=== PATIENT | female | born 1980 | race Caucasian/White ===

== ENCOUNTER 2019-06-22 23:22 | Emergency (ER) | payer SELFPAY ==
[2019-06-22 23:33] VITALS: BP 146/87; PULSE 111; RESP 16; TEMP 37.1; O2SAT 96; BMI 32.4
--- NOTE | 2019-06-23 01:45 | W.ED.SKABFB ---
HPI - Skin/Abscess/Foreign Bdy General: Chief complaint: Skin/Abscess/Foreign Body Stated complaint: L ARMPIT PAIN Time Seen by Provider: 06/23/19 01:45 History of Present Illness: HPI narrative: Patient is a 39-year-old female who comes into the ED with an abscess under her left armpit. Patient states that it started a couple days ago and it just was a red mass on the surface of the skin with a sunshine. She then popped the white head and drained pus out of it. She says the bump was went flat and then about a day ago she started getting redness on the skin and tenderness in the left armpit. She could feel a mass under the left armpit. Associated symptoms: Reports chills and fever(s); Deny nausea or vomiting Review of Systems Const: Reports: fever and chills; Denies: fatigue Eyes: Denies: change in vision or eye discomfort ENMT: Denies: throat pain, painful swallowing, nasal discharge or nasal congestion Card: Denies: chest pain, palpitations, edema, swelling of feet/ankles, shortness of breath on exertion or shortness of breath when lying down Resp: Denies: shortness of breath, productive cough or non-productive cough GI: Denies: abdominal pain, nausea, vomiting, diarrhea, constipation or blood in stool : Denies: flank pain, painful urination or blood in urine Musc: Denies: neck pain, back pain or extremity swelling Skin/Breast: Reports: new lesion (abscess under left arm pit); Denies: rash Neuro: Denies: headache, numbness in extremities or weakness in extremities [facility] ED PFSH: Social History Smoking and tobacco status: current every day smoker Physical Exam Const: COMMON NORMALS: oriented x3 HENMT: COMMON NORMALS: normocephalic HEAD & SCALP: normocephalic MOUTH: oral and palatal mucosa normal THROAT: posterior oropharynx normal and uvula midline Neck/C-Spine: COMMON NORMALS: supple GENERAL: Yes normal visual inspection Resp: COMMON NORMALS: normal respiratory effort, no retractions, no use of accessory muscles and clear to auscultation bilaterally AUSCULTATION: clear to auscultation bilaterally Cardio: COMMON NORMALS: regular rate, regular rhythm, S1 normal heart sound, S2 normal heart sound, no gallops, no clicks, no murmurs and peripheral pulses 2+ throughout RATE: regular rate RHYTHM: regular rhythm HEART SOUNDS: S1 normal and S2 normal PERIPHERAL PULSES: pulses 2+ throughout GI: COMMON NORMALS: normal to inspection, nondistended, normoactive bowel sounds, soft to palpation, non-tender and no masses PALPATION: Yes soft : COMMON NORMALS: Yes no CVA tenderness BLADDER/KIDNEY EXAM: Yes no CVA tenderness Back/Pelvis: COMMON NORMALS: no CVA tenderness Extremity: COMMON NORMALS: normal to inspection Neuro: COMMON NORMALS: oriented x3 and moves all extremities Skin: NARRATIVE SKIN EXAM: Patient has a palpable tender mass under left armpit. The skin on the surface has erythema and warmth. The mass is fluctuant and indurated. mass is probably around 4 cm in diameter. Procedures Abscess I/D Site: upper extremity (axillary) Side (if applicable): left Local Anesthetic: lidocaine 2% Amount of anesthesia used (mL): 20 Technique: incised with #11 blade Amount of fluid expressed (mL): 5 Irrigation: No Packing used?: iodoform Laceration Laceration 1: Site: upper extremity (axillary- incision made for drainage and was then subsequently closed due to no drainage.) Side (If applicable): left Size (cm): 1.5 Description: linear Depth: simple, single layer Local Anesthetic: lidocaine 2% Amount of anesthesia used (mL): 10 Skin layer closed with: nylon Size (cm): 4-0 Number of sutures: 3 Technique: simple, interrupted (3 stitches placed to close up incision after I & D. ) Course ED course: An incision and drainage procedure was performed on patient's left axillary region. Abscess area was cleaned with iodine. 2% lidocaine was used as local anesthetic. First incision was about 1.5 cm and did not have any material to drain. It was then subsequently closed with 3 sutures. Another incision was made in the left axillary region and abscess was drained. Abscess drainage was cultured and lab is pending. I then placed some packing into abscess area. I told patient to return to the ED in 1 to 2 days to get packing removed And to get wound reevaluated. Patient was then put on a prescription for Bactrim and told to follow-up in 1 to 2 days. Patient agreed with understood plan. I also told patient she can get the sutures removed in 7 to 10 days either here or at the ED, urgent care or PCP. Vital Signs: Vital signs: Vital Signs Temperature 98.8 F 06/22/19 23:33 Pulse Rate 91 06/23/19 03:56 Respiratory Rate 16 06/23/19 03:56 Blood Pressure 146/87 06/22/19 23:33 Pulse Oximetry 95 06/23/19 03:56 Discharge Plan Discharge Patient Disposition: Home, Self-Care Clinical Impression: Abscess Condition: Stable Prescriptions: New Bactrim DS 800-160 mg tablet 1 tab PO BID 10 Days Qty: 20 RF: 0 No Action No Known Home Medications RF: 0 Discharge Orders: Discharge Order (Routine); Ordered 06/23/19 Ordered By: Heri Robledo Discharge Diet: Regular Discharge Activity: Resume usual activity Patient Instructions: Abscess Incision and Drainage (ED), Abscess (ED) Activity Restrictions/Additional Instructions: Follow-up here in the ED or urgent care in the next day to 2 days to get the packing removed. Take full course of antibiotics as prescribed. Drink plenty of fluids and stay hydrated. Take [id number] Tylenol or ibuprofen to help with pain. Discharge Date/Time: 06/23/19 03:57 Coding Level of Care Code ED Division Operations Specialist for Judith Red Exam Comprehensive
[2019-06-23] MEDS: HYDROcodone-acetaminophen 7.5-325 mg Tablet 1 TAB PO ×2 (02:19→03:15)
[2019-06-23] MEDS: sulfamethoxazole-trimeth DS 160-800 mg Tablet 1 TAB PO (03:16)
[2019-06-23 03:56] VITALS: PULSE 91; RESP 16; O2SAT 95
--- NOTE | 2019-06-25 14:48 | PC.NURSE ---
LAB CALLED WITH CULTURE RESULT PT ON APPROPRIATE ANTIBIOTIC FOR MRSA AND SENSATIVE TO IT
== END 2019-06-23 03:57 | disposition home or self-care (01) ==
PROVIDERS: Emergency Provider Physician Assistant
DX: L02.412 Cutaneous abscess of left axilla (principal); F17.200 Nicotine dependence, unspecified, uncomplicated
CPT/HCPCS: 10060; 10061; 12001; 12011; 12345; 87070; 87075; 87077; 87186; 87205; 99282; 99283

== ENCOUNTER 2019-06-25 13:56 | Emergency (ER) | payer SELFPAY ==
[2019-06-25 14:18] VITALS: BP 152/90; PULSE 96; RESP 16; TEMP 37; O2SAT 100; BMI 31.8
== END 2019-06-25 14:33 | disposition left against medical advice (07) ==
LOC: ER 14:49
PROVIDERS: Emergency Provider Emergency Medicine
DX: Z48.01 Encounter for change or removal of surgical wound dressing (principal); F17.200 Nicotine dependence, unspecified, uncomplicated; Z53.21 Procedure and treatment not carried out due to patient leaving prior to being seen by health care provider
CPT/HCPCS: 99281

== ENCOUNTER 2019-11-22 18:33 | Emergency (ER) | payer SELFPAY ==
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
[2019-11-22 18:44] VITALS: BP 121/76; PULSE 86; RESP 18; TEMP 36.9; O2SAT 98; BMI 31.5
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
[2019-11-22 19:12] VITALS: RESP 22
[2019-11-22] MEDS: HYDROmorphone 1 mg/mL INJ 1 mL IVP (19:12)
[2019-11-22 19:16] VITALS: BP 122/69; PULSE 79; RESP 22; O2SAT 98
[2019-11-22] MEDS: LORazepam 2 mg/mL INJ 1 mL 1 MG IVP (19:31)
[2019-11-22 19:43] VITALS: BP 122/89; PULSE 78; RESP 18; O2SAT 94
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
[2019-11-22 20:23] VITALS: BP 122/87; PULSE 78; RESP 14; O2SAT 97
[2019-11-22 20:54] VITALS: BP 121/87; PULSE 89; RESP 14; O2SAT 98
== END 2019-11-22 20:56 | disposition home or self-care (01) ==
PROVIDERS: Emergency Provider Emergency Medicine
DX: S70.01XA Contusion of right hip, initial encounter (principal); S90.02XA Contusion of left ankle, initial encounter; F17.210 Nicotine dependence, cigarettes, uncomplicated; V03.90XA Pedestrian on foot injured in collision with car, pick-up truck or van, unspecified whether traffic or nontraffic accident, initial encounter
CPT/HCPCS: 12345; 72192; 73080; 73502; 73562; 73610; 73630; 96374; 96375; 99283; J1170; J2060

== ENCOUNTER 2020-06-17 17:53 | Inpatient (IN) | payer MEDICAID, SELFPAY ==
[2020-06-17] VITALS (10 sets, daily range): BP systolic 90–112; BP diastolic 48–75; PULSE 73–105; RESP 16–18; TEMP 37.1; O2SAT 91–100; BMI 28.3
--- NOTE | 2020-06-17 18:04 | CTR_ITS ---
PROCEDURE INFORMATION: Exam: CT Abdomen And Pelvis With Contrast Exam date and time: 06/17/2020 6:07 PM Age: 40 years old Clinical indication: Abdominal pain; Additional info: Diffuse abd pain TECHNIQUE: Imaging protocol: Computed tomography of the abdomen and pelvis with contrast. Total images: 241 Radiation optimization: All CT scans at this facility use at least one of these dose optimization techniques: automated exposure control; mA and/or kV adjustment per patient size (includes targeted exams where dose is matched to clinical indication); or iterative reconstruction. Contrast material: OMNI 300; Contrast volume: 95 ml; Contrast route: INTRAVENOUS (IV); COMPARISON: CT pelvis wo con [id number] 11/22/2019 7:50 PM RADIATION DOSE METRICS: Total DLP (mGy-cm): 1501.83 FINDINGS: Lungs: Limited assessment of the lung bases fails to reveal evidence for active cardiopulmonary process. Liver: No visible hepatic mass or cystic structure. Hepatomegaly. Moderate periportal edema. Gallbladder and bile ducts: Examination reveals a sick appearing gallbladder. Large amount of pericholecystic fluid. Diffuse increased enhancement of the gallbladder wall but without significant gallbladder wall thickening. No visible formed cholelithiasis. No visible associated intra or extrahepatic biliary ectasia. Findings would be consistent with acute acalculous cholecystitis. Pancreas: Pancreas unremarkable. No visible pancreatic ductal ectasia. Spleen: Splenomegaly. Adrenal glands: Adrenal glands unremarkable. Kidneys and ureters: Kidneys unremarkable. No hydronephrosis or perinephric fluid. No visible nephrolithiasis. Stomach and bowel: Assessment of the hollow viscus fails to reveal evidence of active or acute pathology. Nonobstructed bowel pattern. No visible acute diverticulitis. No visible adynamic or reactive ileus. No evidence for gallstone ileus. Appendix: No evidence of appendicitis. Intraperitoneal space: Moderate amount of free fluid in the pouch of [place]. No visible pneumoperitoneum. Vasculature: Portal vein patent. The abdominal aorta is nonaneurysmal. Mild arterial sclerotic disease. Lymph nodes: Few marginally prominent retroperitoneal pericaval/periaortic lymph nodes. Clinical significance indeterminate. No visible generalized lymphadenopathy within the abdomen or pelvis. Urinary bladder: Urinary bladder unremarkable. Reproductive: Small involuting corpus luteal cyst right ovary. No follow-up recommended. Bones/joints: No visible active or acute osseous pathology. Previous fusion L3, L4, and L5. Intervertebral disc prostheses L3/4 and L4/L5. Mild facet arthrosis L5/S1. Soft tissues: Unremarkable. CT/CT abdomen pelvis w con* [id number] IMPRESSION: 1. Findings raising concern for acute acalculous cholecystitis. 2. Moderate amount of free fluid in the pouch of [place]. 3. Hepatomegaly with moderate periportal edema. 4. Splenomegaly. 5. Few marginally prominent retroperitoneal pericaval/periaortic lymph nodes. Clinical significance indeterminate. Radiation Dose CTDIVOL = (mGy): DLP = 1501.83 (mGy-cm)
--- NOTE | 2020-06-17 18:05 | ECG_ITS ---
[facility] Test Date: 2020-06-17 Pat Name: Theodora Irene Department: Room: Gender: Female Videogame Tester: : 1980 Requested By: Hamlet Lopez Order Number: [id number] John MD: Fernando Ramos M.D. Measurements Intervals [place] Rate: 97 P: 62 [place]: 118 QRS: 61 QRSD: 89 T: 66 QT: 334 QTc: 425 Interpretive Statements SINUS RHYTHM WITH SHORT [place] INTERVAL Compared to ECG 09/20/2017 00:47:24 Sinus tachycardia no longer present Electronically Signed On 06-17-2020 18:22:02 SUPERVISOR TRAVEL TRAILER by Fernando Ramos M.D. [id number]
--- NOTE | 2020-06-17 18:11 | ED_ITS ---
Documented by User: MARIK Pitt 06/17/20 21:16 HPI - Abdominal Pain General: Chief Complaint: Abdominal Pain Stated Complaint: N/V, SIDE PAIN Time Seen by Provider: 06/17/20 18:03 Source: patient Mode of arrival: ambulatory Limitations: no limitations History of Present Illness: HPI narrative: 40-year-old female comes in today with complaints of abdominal pain. Patient reports nausea vomiting and epigastric discomfort for last 2 days. Patient reports that it goes from the midline to the right side of her upper abdomen. Patient reports last bowel movement 2 to 3 days ago. Patient reports difficulty holding down liquids. Patient reports poor dentition, with frequent dental abscess. Patient denies any other medical problems or concerns. Patient has had a tubal ligation for control. MD elicited complaint: abdominal pain Onset (ago): day(s) Location: RUQ Severity: severe Quality: cramping Exacerbating factors: nothing Relieving factors: nothing Associated Symptoms: Reports change in bowel habits, heartburn, nausea and vomiting Related Data: Date of Last Menstrual Period: 11/21/19 Review of Systems General: Reports: 10 or more systems reviewed and unremarkable except in HPI and below GI: Reports: nausea, vomiting, heartburn and change in bowel habits PFSH ED PFSH: Medical History (Updated 06/17/20 @ 22:27 by Kannan Patterson MD) Bipolar disorder Surgical History (Updated 06/17/20 @ 22:14 by Kannan Patterson MD) H/O tubal ligation Family History (Updated 06/17/20 @ 22:14 by Kannan Patterson MD) Father Cancer Testicular cancer Social History (Updated 06/17/20 @ 22:15 by Kannan Patterson MD) Smoking and tobacco status: current every day smoker Alcohol intake: never Female Reproductive History: Date of last menstrual period: 11/21/19 Physical Exam Const: COMMON NORMALS: no acute distress and patient oriented x3 GENERAL APPEARANCE: cooperative HENMT: COMMON NORMALS: normocephalic and Normal external nose present HEAD & SCALP: normal to inspection and normocephalic NOSE: Normal external nose present MOUTH: Normal oral and palatal mucosa present and other (Poor dentition, superficial abscess noted to the right upper premolar) THROAT: posterior oropharynx normal Eye: GENERAL EYE: appearance normal, both eyes and all related structures Neck/C-Spine: COMMON NORMALS: full ROM Lymph: LYMPHATIC: no lymphadenopathy noted Chest: COMMONS NORMALS: normal inspection of the chest Resp: COMMON NORMALS: normal respiratory effort EFFORT & INSPECTION: Yes able to speak in complete sentences Cardio: COMMON NORMALS: regular rate and regular rhythm RATE: regular rate RHYTHM: regular rhythm GI: COMMON NORMALS: Soft to palpation INSPECTION: Yes normal to inspection AUSCULTATION: Yes normoactive bowel sounds PALPATION: Yes Soft to palpation and Yes Tenderness to palpation present (GI) Details: RUQ RECTAL EXAM: deferred : BLADDER/KIDNEY EXAM: Yes CVA tenderness bilateral Back/Pelvis: COMMON NORMALS: thoracic and lumbar spine normal to inspection GENERAL BACK: Yes CVA tenderness Extremity: COMMON NORMALS: normal to inspection Neuro: COMMON NORMALS: patient oriented x3 and moves all extremities Psych: COMMON NORMALS: mental status grossly normal and cooperative Skin: COMMON NORMALS: no rashes or lesions noted GENERAL SKIN EXAM: no rashes or lesions noted Course ED course: 1919, patient is resting well with good relief of pain. Awaiting lab and imaging. wjw. 1955, etiology contact me regarding patient's significant gallbladder wall inflammation suggesting a calculus cholecystitis. I discussed this with Dr. Fernandez with plan to order gallbladder ultrasound and start patient on Zosyn. He agreed with plan. wjw 2114, Dr. Fernandez assumed care of patient to talk with Dr. Frey and to admit patient to hospital. wjw Vital Signs: Vital signs: Vital Signs Temperature 98.7 F 06/17/20 17:56 Pulse Rate 77 06/17/20 23:30 Respiratory Rate 16 06/17/20 21:37 Blood Pressure 101/51 06/17/20 23:30 Pulse Oximetry 95 06/17/20 23:30 MDM - Abdominal Pain [facility] Narrative: Medical decision making narrative: Patient comes in today for complaints of right upper quadrant abdominal pain. On exam abdomen was soft with significant tenderness to the right upper quadrant. Vital signs were normal. Differential diagnosis includes gastritis, gastroenteritis, cholecystitis, pancreatitis, appendicitis. Laboratory values had a normal white blood cell count, significant elevation in liver enzymes with some elevated bilirubin. Urinalysis was a dirty catch. CT scan was performed noticing significant gallbladder wall inflammation without any signs of gallstone suggesting a have calculus cholecystitis. Ultrasound was then performed and noted normal bile duct size and gallbladder wall inflammation. Dr. Fernandez was consulted who agreed that we need to consult with surgeon Dr. Frey, he assumed care of patient for admission. Lab Data: Labs: Lab Results 06/17/20 06/17/20 06/17/20 Range/Units 18:30 18:40 19:00 WBC 4.5 (4.0-10.0) 10^3/ uL RBC 5.08 (4.1-5.3) 10^6/u L Hgb 14.1 (11.5-15.3) g/dL Hct 43.1 (37.0-47.0) % MCV 84.8 (81-99) fL MCH 27.8 L (28.0-34.0) pg MCHC 32.7 (30.0-36.0) g/dL RDW 14.7 (12.1-15.1) % Plt Count 226 (130-400) 10^3/c mm MPV 12.0 H (7.4-10.4) fL Neut % (Auto) 63.4 % Lymph % (Auto) 25.1 % Walsh % (Auto) 8.6 % Eos % (Auto) 1.3 % Baso % (Auto) 0.9 % Neut # (Auto) 2.86 (1.8-7.7) 10^3/u L Lymph # (Auto) 1.1 (0.8-4.8) 10^3/u L Walsh # (Auto) 0.4 (0.2-0.9) 10^3/u L Eos # (Auto) 0.1 (0.0-0.8) 10^3/u L Baso # (Auto) 0.0 (0.0-0.1) 10^3/u L Nucleated RBC % (a uto) 0 % Nucleated RBCs # 0.0 /100WBC PT (12.1-14.9) SECO NDS INR (0.8-1.2) APTT (23.9-36.7) SECO NDS Sodium 133 L (136-145) mmol/L Potassium 3.7 (3.5-5.1) mmol/L Chloride 99 (98-107) mmol/L Carbon Dioxide 28 (22-29) mmol/L Anion Gap 9.7 (5-19) BUN 8 (6-20) mg/dL Creatinine 0.5 (0.5-0.9) mg/dL GFR Calculation 136.6 H (90-130) mL/min Glucose 117 H (65-115) mg/dL Calculated Osmolal ity 275 L (285-295) mOsm/k g Lactate (0.5-2.2) mmol/L Calcium 7.8 L (8.5-10.5) mg/dL Total Bilirubin 3.5 H (0.15-1.2) mg/dL AST 2186 H (0-32) U/L ALT 1979 H (0-33) U/L Alkaline Phosphata se 474 H (35-105) IU/L Total Protein 6.8 (6.6-8.7) g/dL Albumin 2.6 L (3.5-5.2) g/dL Globulin 4.2 (1.3-4.6) g/dL Lipase 23 (13-60) U/L HCG, Qual (Negative) Urine Color Francheska (Yellow) Urine Appearance Clear (CLEAR) Urine pH 6.5 (5-7) Ur Specific Gravit y 1.020 (1.005-1.030) Urine Protein 1+ H (Negative) Urine Glucose (UA) Norm (Normal) Urine Ketones 1+ H (Negative) Urine Blood Neg (Negative) Urine Nitrate Negative (Negative) Urine Bilirubin 3+ H (Negative) Urine Urobilinogen 4+ H (Negative) mg/dL Ur Leukocyte Denisse ase Trace H (Negative) Urine RBC 0-4 H (0-2) /hpf Urine WBC 0-4 H (0-5) /hpf Ur Squamous Epith Cells 15-25 H (0-5) /hpf Calcium Oxalate Cr ystal 10-15 H /hpf Amorphous Sediment Not Reportable Urine Bacteria Trace (NONE) /hpf Hepatitis A IgM Ab (Nonreactive) Hep Bs Antigen (Nonreactive) Hep B Core IgM Ab (Nonreactive) Hepatitis C Antibo dy (Nonreactive) 06/17/20 06/17/20 06/17/20 Range/Units 19:00 19:00 19:00 WBC (4.0-10.0) 10^3/ uL RBC (4.1-5.3) 10^6/u L Hgb (11.5-15.3) g/dL Hct (37.0-47.0) % MCV (81-99) fL MCH (28.0-34.0) pg MCHC (30.0-36.0) g/dL RDW (12.1-15.1) % Plt Count (130-400) 10^3/c mm MPV (7.4-10.4) fL Neut % (Auto) % Lymph % (Auto) % Walsh % (Auto) % Eos % (Auto) % Baso % (Auto) % Neut # (Auto) (1.8-7.7) 10^3/u L Lymph # (Auto) (0.8-4.8) 10^3/u L Walsh # (Auto) (0.2-0.9) 10^3/u L Eos # (Auto) (0.0-0.8) 10^3/u L Baso # (Auto) (0.0-0.1) 10^3/u L Nucleated RBC % (a uto) % Nucleated RBCs # /100WBC PT (12.1-14.9) SECO NDS INR (0.8-1.2) APTT (23.9-36.7) SECO NDS Sodium (136-145) mmol/L Potassium (3.5-5.1) mmol/L Chloride (98-107) mmol/L Carbon Dioxide (22-29) mmol/L Anion Gap (5-19) BUN (6-20) mg/dL Creatinine (0.5-0.9) mg/dL GFR Calculation (90-130) mL/min Glucose (65-115) mg/dL Calculated Osmolal ity (285-295) mOsm/k g Lactate 1.4 (0.5-2.2) mmol/L Calcium (8.5-10.5) mg/dL Total Bilirubin (0.15-1.2) mg/dL AST (0-32) U/L ALT (0-33) U/L Alkaline Phosphata se (35-105) IU/L Total Protein (6.6-8.7) g/dL Albumin (3.5-5.2) g/dL Globulin (1.3-4.6) g/dL Lipase (13-60) U/L HCG, Qual Negative (Negative) Urine Color (Yellow) Urine Appearance (CLEAR) Urine pH (5-7) Ur Specific Gravit y (1.005-1.030) Urine Protein (Negative) Urine Glucose (UA) (Normal) Urine Ketones (Negative) Urine Blood (Negative) Urine Nitrate (Negative) Urine Bilirubin (Negative) Urine Urobilinogen (Negative) mg/dL Ur Leukocyte Denisse ase (Negative) Urine RBC (0-2) /hpf Urine WBC (0-5) /hpf Ur Squamous Epith Cells (0-5) /hpf Calcium Oxalate Cr ystal /hpf Amorphous Sediment Urine Bacteria (NONE) /hpf Hepatitis A IgM Ab Reactive H (Nonreactive) Hep Bs Antigen Non-reactive (Nonreactive) Hep B Core IgM Ab Non-reactive (Nonreactive) Hepatitis C Antibo dy Reactive H (Nonreactive) 06/17/20 Range/Units 21:24 WBC (4.0-10.0) 10^3/ uL RBC (4.1-5.3) 10^6/u L Hgb (11.5-15.3) g/dL Hct (37.0-47.0) % MCV (81-99) fL MCH (28.0-34.0) pg MCHC (30.0-36.0) g/dL RDW (12.1-15.1) % Plt Count (130-400) 10^3/c mm MPV (7.4-10.4) fL Neut % (Auto) % Lymph % (Auto) % Walsh % (Auto) % Eos % (Auto) % Baso % (Auto) % Neut # (Auto) (1.8-7.7) 10^3/u L Lymph # (Auto) (0.8-4.8) 10^3/u L Walsh # (Auto) (0.2-0.9) 10^3/u L Eos # (Auto) (0.0-0.8) 10^3/u L Baso # (Auto) (0.0-0.1) 10^3/u L Nucleated RBC % (a uto) % Nucleated RBCs # /100WBC PT 15.60 H (12.1-14.9) SECO NDS INR 1.20 (0.8-1.2) APTT 37.5 H (23.9-36.7) SECO NDS Sodium (136-145) mmol/L Potassium (3.5-5.1) mmol/L Chloride (98-107) mmol/L Carbon Dioxide (22-29) mmol/L Anion Gap (5-19) BUN (6-20) mg/dL Creatinine (0.5-0.9) mg/dL GFR Calculation (90-130) mL/min Glucose (65-115) mg/dL Calculated Osmolal ity (285-295) mOsm/k g Lactate (0.5-2.2) mmol/L Calcium (8.5-10.5) mg/dL Total Bilirubin (0.15-1.2) mg/dL AST (0-32) U/L ALT (0-33) U/L Alkaline Phosphata se (35-105) IU/L Total Protein (6.6-8.7) g/dL Albumin (3.5-5.2) g/dL Globulin (1.3-4.6) g/dL Lipase (13-60) U/L HCG, Qual (Negative) Urine Color (Yellow) Urine Appearance (CLEAR) Urine pH (5-7) Ur Specific Gravit y (1.005-1.030) Urine Protein (Negative) Urine Glucose (UA) (Normal) Urine Ketones (Negative) Urine Blood (Negative) Urine Nitrate (Negative) Urine Bilirubin (Negative) Urine Urobilinogen (Negative) mg/dL Ur Leukocyte Denisse ase (Negative) Urine RBC (0-2) /hpf Urine WBC (0-5) /hpf Ur Squamous Epith Cells (0-5) /hpf Calcium Oxalate Cr ystal /hpf Amorphous Sediment Urine Bacteria (NONE) /hpf Hepatitis A IgM Ab (Nonreactive) Hep Bs Antigen (Nonreactive) Hep B Core IgM Ab (Nonreactive) Hepatitis C Antibo dy (Nonreactive) EKG Data ^: EKG 1: Attestation: I personally reviewed and interpreted this EKG as follows: (1814, EKG shows a sinus rhythm with a regular rate at 97 bpm, no ST elevation, no ectopy. No prior exam available for comparison.) Discharge Plan Discharge Patient Disposition: Admitted As Inpatient Admit Provider: Kannan Patterson Clinical Impression: Acute acalculous cholecystitis Condition: Stable Coding Level of Care Code ED Field Support Technician for Chg Fwd Exam Comprehensive Documented by User: Kirby Heri DO Jim 06/17/20 23:55 HPI - Abdominal Pain General: Chief Complaint: Abdominal Pain Stated Complaint: N/V, SIDE PAIN Time Seen by Provider: 06/17/20 18:03 PFSH ED PFSH: Medical History (Updated 06/17/20 @ 22:27 by Kannan Pattreson MD) Bipolar disorder Surgical History (Updated 06/17/20 @ 22:14 by Kannan Patterson MD) H/O tubal ligation Family History (Updated 06/17/20 @ 22:14 by Kannan Patterson MD) Father Cancer Testicular cancer Social History (Updated 06/17/20 @ 22:15 by Kannan Patterson MD) Smoking and tobacco status: current every day smoker Alcohol intake: never Course Vital Signs: Vital signs: Vital Signs Temperature 98.7 F 06/17/20 17:56 Pulse Rate 77 06/17/20 23:30 Respiratory Rate 16 06/17/20 21:37 Blood Pressure 101/51 06/17/20 23:30 Pulse Oximetry 95 06/17/20 23:30 MDM - Abdominal Pain MDM Narrative: Medical decision making narrative: 40-year-old female o riginally seen by AMRIK Espinosa. I agree with his history, evaluation, work- up, and treatment. This is a 40-year-old female with epigastric and right upper quadrant pain. Her white blood cell count is 4.5. Her electrolytes are benign she has significantly elevated liver enzymes. She is positive for hepatitis A and hepatitis C on acute hepatitis panel. She has gallbladder wall thickening w ith pericholecystic fluid and normal bile ducts by CT and ultrasound. A calculus cholecystitis findings are likely a result of the acute hepatitis. Dr. Frey was called from surgery, and he agrees with this. The patient's INR is 1. She will come into the hospital for supportive treatment of hepatitis A, and coverage for a calculus cholecystitis Lab Data: Labs: Lab Results 06/17/20 06/17/20 06/17/20 Range/Units 18:30 18:40 19:00 WBC 4.5 (4.0-10.0) 10^3/ uL RBC 5.08 (4.1-5.3) 10^6/u L Hgb 14.1 (11.5-15.3) g/dL Hct 43.1 (37.0-47.0) % MCV 84.8 (81-99) fL MCH 27.8 L (28.0-34.0) pg MCHC 32.7 (30.0-36.0) g/dL RDW 14.7 (12.1-15.1) % Plt Count 226 (130-400) 10^3/c mm MPV 12.0 H (7.4-10.4) fL Neut % (Auto) 63.4 % Lymph % (Auto) 25.1 % Walsh % (Auto) 8.6 % Eos % (Auto) 1.3 % Baso % (Auto) 0.9 % Neut # (Auto) 2.86 (1.8-7.7) 10^3/u L Lymph # (Auto) 1.1 (0.8-4.8) 10^3/u L Walsh # (Auto) 0.4 (0.2-0.9) 10^3/u L Eos # (Auto) 0.1 (0.0-0.8) 10^3/u L Baso # (Auto) 0.0 (0.0-0.1) 10^3/u L Nucleated RBC % (a uto) 0 % Nucleated RBCs # 0.0 /100WBC PT (12.1-14.9) SECO NDS INR (0.8-1.2) APTT (23.9-36.7) SECO NDS Sodium 133 L (136-145) mmol/L Potassium 3.7 (3.5-5.1) mmol/L Chloride 99 (98-107) mmol/L Carbon Dioxide 28 (22-29) mmol/L Anion Gap 9.7 (5-19) BUN 8 (6-20) mg/dL Creatinine 0.5 (0.5-0.9) mg/dL GFR Calculation 136.6 H (90-130) mL/min Glucose 117 H (65-115) mg/dL Calculated Osmolal ity 275 L (285-295) mOsm/k g Lactate (0.5-2.2) mmol/L Calcium 7.8 L (8.5-10.5) mg/dL Total Bilirubin 3.5 H (0.15-1.2) mg/dL AST 2186 H (0-32) U/L ALT 1979 H (0-33) U/L Alkaline Phosphata se 474 H (35-105) IU/L Total Protein 6.8 (6.6-8.7) g/dL Albumin 2.6 L (3.5-5.2) g/dL Globulin 4.2 (1.3-4.6) g/dL Lipase 23 (13-60) U/L HCG, Qual (Negative) Urine Color Francheska (Yellow) Urine Appearance Clear (CLEAR) Urine pH 6.5 (5-7) Ur Specific Gravit y 1.020 (1.005-1.030) Urine Protein 1+ H (Negative) Urine Glucose (UA) Norm (Normal) Urine Ketones 1+ H (Negative) Urine Blood Neg (Negative) Urine Nitrate Negative (Negative) Urine Bilirubin 3+ H (Negative) Urine Urobilinogen 4+ H (Negative) mg/dL Ur Leukocyte Denisse ase Trace H (Negative) Urine RBC 0-4 H (0-2) /hpf Urine WBC 0-4 H (0-5) /hpf Ur Squamous Epith Cells 15-25 H (0-5) /hpf Calcium Oxalate Cr ystal 10-15 H /hpf Amorphous Sediment Not Reportable Urine Bacteria Trace (NONE) /hpf Hepatitis A IgM Ab (Nonreactive) Hep Bs Antigen (Nonreactive) Hep B Core IgM Ab (Nonreactive) Hepatitis C Antibo dy (Nonreactive) 06/17/20 06/17/20 06/17/20 Range/Units 19:00 19:00 19:00 WBC (4.0-10.0) 10^3/ uL RBC (4.1-5.3) 10^6/u L Hgb (11.5-15.3) g/dL Hct (37.0-47.0) % MCV (81-99) fL MCH (28.0-34.0) pg MCHC (30.0-36.0) g/dL RDW (12.1-15.1) % Plt Count (130-400) 10^3/c mm MPV (7.4-10.4) fL Neut % (Auto) % Lymph % (Auto) % Walsh % (Auto) % Eos % (Auto) % Baso % (Auto) % Neut # (Auto) (1.8-7.7) 10^3/u L Lymph # (Auto) (0.8-4.8) 10^3/u L Walsh # (Auto) (0.2-0.9) 10^3/u L Eos # (Auto) (0.0-0.8) 10^3/u L Baso # (Auto) (0.0-0.1) 10^3/u L Nucleated RBC % (a uto) % Nucleated RBCs # /100WBC PT (12.1-14.9) SECO NDS INR (0.8-1.2) APTT (23.9-36.7) SECO NDS Sodium (136-145) mmol/L Potassium (3.5-5.1) mmol/L Chloride (98-107) mmol/L Carbon Dioxide (22-29) mmol/L Anion Gap (5-19) BUN (6-20) mg/dL Creatinine (0.5-0.9) mg/dL GFR Calculation (90-130) mL/min Glucose (65-115) mg/dL Calculated Osmolal ity (285-295) mOsm/k g Lactate 1.4 (0.5-2.2) mmol/L Calcium (8.5-10.5) mg/dL Total Bilirubin (0.15-1.2) mg/dL AST (0-32) U/L ALT (0-33) U/L Alkaline Phosphata se (35-105) IU/L Total Protein (6.6-8.7) g/dL Albumin (3.5-5.2) g/dL Globulin (1.3-4.6) g/dL Lipase (13-60) U/L HCG, Qual Negative (Negative) Urine Color (Yellow) Urine Appearance (CLEAR) Urine pH (5-7) Ur Specific Gravit y (1.005-1.030) Urine Protein (Negative) Urine Glucose (UA) (Normal) Urine Ketones (Negative) Urine Blood (Negative) Urine Nitrate (Negative) Urine Bilirubin (Negative) Urine Urobilinogen (Negative) mg/dL Ur Leukocyte Denisse ase (Negative) Urine RBC (0-2) /hpf Urine WBC (0-5) /hpf Ur Squamous Epith Cells (0-5) /hpf Calcium Oxalate Cr ystal /hpf Amorphous Sediment Urine Bacteria (NONE) /hpf Hepatitis A IgM Ab Reactive H (Nonreactive) Hep Bs Antigen Non-reactive (Nonreactive) Hep B Core IgM Ab Non-reactive (Nonreactive) Hepatitis C Antibo dy Reactive H (Nonreactive) 06/17/20 Range/Units 21:24 WBC (4.0-10.0) 10^3/ uL RBC (4.1-5.3) 10^6/u L Hgb (11.5-15.3) g/dL Hct (37.0-47.0) % MCV (81-99) fL MCH (28.0-34.0) pg MCHC (30.0-36.0) g/dL RDW (12.1-15.1) % Plt Count (130-400) 10^3/c mm MPV (7.4-10.4) fL Neut % (Auto) % Lymph % (Auto) % Walsh % (Auto) % Eos % (Auto) % Baso % (Auto) % Neut # (Auto) (1.8-7.7) 10^3/u L Lymph # (Auto) (0.8-4.8) 10^3/u L Walsh # (Auto) (0.2-0.9) 10^3/u L Eos # (Auto) (0.0-0.8) 10^3/u L Baso # (Auto) (0.0-0.1) 10^3/u L Nucleated RBC % (a uto) % Nucleated RBCs # /100WBC PT 15.60 H (12.1-14.9) SECO NDS INR 1.20 (0.8-1.2) APTT 37.5 H (23.9-36.7) SECO NDS Sodium (136-145) mmol/L Potassium (3.5-5.1) mmol/L Chloride (98-107) mmol/L Carbon Dioxide (22-29) mmol/L Anion Gap (5-19) BUN (6-20) mg/dL Creatinine (0.5-0.9) mg/dL GFR Calculation (90-130) mL/min Glucose (65-115) mg/dL Calculated Osmolal ity (285-295) mOsm/k g Lactate (0.5-2.2) mmol/L Calcium (8.5-10.5) mg/dL Total Bilirubin (0.15-1.2) mg/dL AST (0-32) U/L ALT (0-33) U/L Alkaline Phosphata se (35-105) IU/L Total Protein (6.6-8.7) g/dL Albumin (3.5-5.2) g/dL Globulin (1.3-4.6) g/dL Lipase (13-60) U/L HCG, Qual (Negative) Urine Color (Yellow) Urine Appearance (CLEAR) Urine pH (5-7) Ur Specific Gravit y (1.005-1.030) Urine Protein (Negative) Urine Glucose (UA) (Normal) Urine Ketones (Negative) Urine Blood (Negative) Urine Nitrate (Negative) Urine Bilirubin (Negative) Urine Urobilinogen (Negative) mg/dL Ur Leukocyte Denisse ase (Negative) Urine RBC (0-2) /hpf Urine WBC (0-5) /hpf Ur Squamous Epith Cells (0-5) /hpf Calcium Oxalate Cr ystal /hpf Amorphous Sediment Urine Bacteria (NONE) /hpf Hepatitis A IgM Ab (Nonreactive) Hep Bs Antigen (Nonreactive) Hep B Core IgM Ab (Nonreactive) Hepatitis C Antibo dy (Nonreactive) Discharge Plan Discharge Patient Disposition: Admitted As Inpatient Admit Provider: Kannan Patterson Clinical Impression: Acute acalculous cholecystitis Condition: Stable Coding Level of Care Code ED Field Support Technician for Chg Fwd Exam Comprehensive
[2020-06-17 18:41] LABS: Basophils % 0.9 %; Eosinophils # 0.1 10^3/uL (0.0-0.8); Eosinophils % 1.3 %; Hematocrit 43.1 % (37.0-47.0); Hemoglobin 14.1 g/dL (11.5-15.3); Lymphocytes # 1.1 10^3/uL (0.8-4.8); Lymphocytes % 25.1 %; Mean Corpuscular HGB Conc 32.7 g/dL (30.0-36.0); Mean Corpuscular Hemoglobin 27.8 pg (28.0-34.0); Mean Corpuscular Volume 84.8 fL (81-99); Monocytes # 0.4 10^3/uL (0.2-0.9); Monocytes % 8.6 %; Neutrophils # 2.86 10^3/uL (1.8-7.7); Neutrophils % 63.4 %; Nucleated Red Blood Cells % 0 %; Platelet Count 226 10^3/cmm (130-400); Red Blood Count 5.08 10^6/uL (4.1-5.3); Red Cell Distribution Width 14.7 % (12.1-15.1); White Blood Count 4.5 10^3/uL (4.0-10.0)
[2020-06-17] MEDS: sodium chloride 0.9% 1,000 ML 999 ML IV (18:48)
[2020-06-17] MEDS: morphine 4 mg/mL SDV 1 mL IM (18:49)
[2020-06-17] MEDS: ondansetron 2 mg/ML SDV 2 mL 4 MG IVP (18:49)
[2020-06-17 19:19] LABS: HCG, Serum Qual Negative (Negative)
[2020-06-17 19:22] LABS: Bilirubin Urine 3+ (Negative); Blood Urine Neg (Negative); Glucose Urine UA Norm (Normal); Ketones Urine 1+ (Negative); Nitrate Urine Negative (Negative); Protein Urine 1+ (Negative); Urine Appearance Clear (CLEAR); Urine Color Amber (Yellow); pH Urine 6.5 (5-7)
[2020-06-17 19:23] LABS: Add Urine Microscopic? YES; Leukocyte Esterase Urine Trace (Negative); Urobilinogen Urine 4+ mg/dL (Negative)
[2020-06-17 19:26] LABS: Add Urine Culture? No; Bacteria Urine TRACE /hpf; RBC Urine 0-4 /hpf (0-2); Squamous Epithelial Cell Urine 15-25 /hpf (0-5); WBC Urine 0-4 /hpf (0-5)
[2020-06-17 19:27] LABS: Albumin Level 2.6 g/dL (3.5-5.2); Alkaline Phosphatase 474 IU/L (35-105); Anion Gap 9.7 (5-19); Blood Urea Nitrogen 8 mg/dL (6-20); Calcium 7.8 mg/dL (8.5-10.5); Carbon Dioxide 28 mmol/L (22-29); Chloride 99 mmol/L (98-107); Globulin 4.2 g/dL (1.3-4.6); Glomerular Filtration Rate 136.6 mL/min (90-130); Glucose 117 mg/dL (65-115); Lipase 23 U/L (13-60); Osmolality Calculated 275 mOsm/kg (285-295); Potassium 3.7 mmol/L (3.5-5.1); Sodium 133 mmol/L (136-145); Total Bilirubin 3.5 mg/dL (0.15-1.2); Total Protein 6.8 g/dL (6.6-8.7)
[2020-06-17 19:28] LABS: Lactate (Lactic Acid level) 1.4 mmol/L (0.5-2.2)
[2020-06-17] MEDS: iohexol 300 mg/mL 100 mL Btl IV (19:37)
[2020-06-17 19:40] LABS: Alanine Aminotransferase 1979 U/L (0-33); Aspartate Amino Transferase 2186 U/L (0-32)
--- NOTE | 2020-06-17 19:53 | USR_ITS ---
PROCEDURE INFORMATION: Exam: US Abdomen, Limited; Right Upper Quadrant Exam date and time: 06/17/2020 8:31 PM Age: 40 years old Clinical indication: Abdominal pain; Additional info: Cholecystitis TECHNIQUE: Imaging protocol: US abdomen. Real time ultrasound with image documentation. Limited exam focused on the right upper quadrant. Total images: 90 COMPARISON: CT abdomen pelvis w con* [id number] 06/17/2020 7:48 PM FINDINGS: Liver: Normal. No masses. Gallbladder: Findings similar to the CT abdomen and pelvis examination of 06/17/2020 at 7:52 p.m. Findings again suggest acute acalculous cholecystitis. No visible formed cholelithiasis. Thickened gallbladder wall with edema. Pericholecystic fluid. Common bile duct: Normal. No stones. No dilation. Common bile duct measures 3 mm. Pancreas: Visualized pancreas is unremarkable. Right kidney: Normal. No mass. No hydronephrosis. Right kidney measures 11.4 cm x 4.5 cm x 4.7 cm. Aorta: The abdominal aorta, where visualized, is nonaneurysmal. Portal venous: Antegrade portal venous flow. Inferior vena cava: IVC patent. US/US gall bladder [id number] IMPRESSION: Acute acalculous cholecystitis.
[2020-06-17 20:16] LABS: Hepatitis B Core IgM Non-Reactive (Nonreactive); Hepatitis B Surface Antigen Non-Reactive (Nonreactive)
[2020-06-17] MEDS: piperacillin-tazobactam 3.375 GM in sodium chloride 0.9% (plus) 50 ML IV (21:03)
[2020-06-17 21:14] LABS: Hepatitis A Antibody IgM Reactive (Nonreactive); Hepatitis C Virus Antibody Reactive (Nonreactive)
[2020-06-17] MEDS: morphine 4 mg/mL SDV 1 mL 2 MG IVP (21:37)
[2020-06-17 21:56] LABS: Partial Thromboplastin Time 37.5 SECONDS (23.9-36.7)
--- NOTE | 2020-06-17 22:05 | PM.HP ---
Providers/Chief Complaint Chief Complaint: N/V, SIDE PAIN History of Present Illness Theodora Irene is a 40 year old female with a history of bipolar disorder presented to the emergency department with a complaint of abdominal pain onset 3 days ago. Symptoms associated with nausea and vomiting. Patient denied any diarrhea. Patient denied any fever. Work-up in the emergency department revealed elevated liver enzymes and bilirubin. CT abdomen and gallbladder ultrasound report gallbladder wall thickening with edema and pericholecystic fluid. No cholelithiasis. Serology is positive for hepatitis A IgM and hepatitis C antibody. Patient diagnosed with acute hepatitis and admitted for further management. Review of Systems Narrative: Except as documented, all other systems reviewed and negative. Medications/Allergies Home Medications Medication Instructions Recorded Confirmed Last Taken Type acetaminophen [Tylenol] 325 mg PO QID PRN 06/17/20 06/17/20 06/17/20 History lbhpwjk-iswsfxullawjg-wjgmbocs 1 tab PO Q6H PRN 06/17/20 06/17/20 Unknown History [Goody's Migraine Relief] Allergies Allergy/AdvReac Type Severity Reaction Status Date / Time lamotrigine [From Lamictal] Allergy ALGY-Rash Verified 06/25/19 16:33 tramadol Allergy ADR-Anxiety Verified 06/25/19 16:33 PFSH Acute PFSH: Medical History (Updated 06/17/20 @ 22:27 by Kannan Patterson MD) Bipolar disorder Surgical History (Updated 06/17/20 @ 22:14 by Kannan Patterson MD) H/O tubal ligation Family History (Updated 06/17/20 @ 22:14 by Kannan Patterson MD) Father Cancer Testicular cancer Social History (Updated 06/17/20 @ 22:15 by Kannan Patterson MD) Smoking and tobacco status: current every day smoker Alcohol intake: never Female Reproductive History: Date of last menstrual period: 11/21/19 Vitals/I&O/Wt Last Vital Signs Temp 98.7 F 06/17/20 17:56 Pulse 95 06/17/20 18:54 Resp 16 06/17/20 21:37 BP 112/55 06/17/20 18:54 Pulse Ox 100 06/17/20 21:37 Weight last 48 hrs Weight 72.575 kg Physical Exam Const: COMMON NORMALS: no acute distress, average body habitus, patient oriented x3 and well nourished HENMT: COMMON NORMALS: normocephalic, atraumatic, moist oral mucous membranes and oropharynx normal Eye: COMMON NORMALS: Equal, round and reactive pupils present, EOMs intact bilaterally and conjunctivae normal SCLERA: scleral abnormal (Mild icterus) Neck/C-Spine: COMMON NORMALS: full ROM, supple and Thyroid normal Lymph: LYMPHATIC: no lymphadenopathy noted Chest: COMMONS NORMALS: normal inspection of the chest CHEST: Yes Symmetrical chest wall rise Resp: COMMON NORMALS: normal respiratory effort, No retractions, No use of accessory muscles and clear to auscultation bilaterally Cardio: COMMON NORMALS: no JVD, regular rate, regular rhythm, S1 normal heart sound present and S2 normal heart sound present GI: COMMON NORMALS: Normal to inspection, nondistended, normoactive bowel sounds present, Soft to palpation and No hepatosplenomegaly present PALPATION: Yes Tenderness to palpation present (GI) Details: RUQ : BLADDER/KIDNEY EXAM: Yes no CVA tenderness Back/Pelvis: COMMON NORMALS: no CVA tenderness, no thoracic nor lumbar tenderness and thoraco-lumbar ROM normal Extremity: COMMON NORMALS: normal to inspection, full ROM, capillary refill normal, no clubbing, cyanosis or edema and no calf tenderness Neuro: COMMON NORMALS: patient oriented x3, CN's II-XII intact bilaterally and no focal motor deficits Psych: COMMON NORMALS: mental status grossly normal, Normal thought process present, cooperative and normal affect APPEARANCE: Yes grossly normal Skin: GENERAL SKIN EXAM: jaundice Data : 06/17/20 18:30 06/17/20 19:00 Micro: Microbiology 06/17/20 20:08 Blood Culture - Preliminary Blood SPECIMEN COLLECTED A&P Assessment and plan (1) Acute hepatitis A: Status: Acute (2) Hepatitis C infection: Status: Acute (3) Acute acalculous cholecystitis: Status: Acute Additional A&P Information Admit patient to the medical floor. We will treat possible infection empirically with IV Zosyn. Supportive measures for acute hepatitis-IV fluid, antiemetics as needed, pain management as needed. Monitor LFT for improvement. Check coagulation profile daily to monitor for fulminant hepatitis or hepatic failure. Attestations Medical Necessity Statement*: Patient presenting with nausea and vomiting secondary to acute hepatitis. She need to be hospitalized for supportive measures. She is expected to spend more than 2 midnights. 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
[2020-06-18] VITALS (9 sets, daily range): BP systolic 89–111; BP diastolic 58–71; PULSE 77–89; RESP 16–22; TEMP 36.8–37.1; O2SAT 97–98
[2020-06-18] MEDS: famotidine 20 mg/2 mL INJ IVP ×3 (00:39→23:34)
[2020-06-18] MEDS: sodium chloride 0.9% 1,000 ML 125 ML IV ×3 (00:40→15:50)
[2020-06-18] MEDS: morphine 4 mg/mL SDV 1 mL 2 MG IVP (05:48)
[2020-06-18 07:13] LABS: Basophils % 0.4 %; Eosinophils % 0.7 %; Hematocrit 41.1 % (37.0-47.0); Lymphocytes # 1.3 10^3/uL (0.8-4.8); Mean Corpuscular HGB Conc 31.6 g/dL (30.0-36.0); Mean Corpuscular Hemoglobin 27.7 pg (28.0-34.0); Mean Corpuscular Volume 87.4 fL (81-99); Mean Platelet Volume 11.9 fL (7.4-10.4); Monocytes # 0.5 10^3/uL (0.2-0.9); Monocytes % 11.2 %; Neutrophils # 2.56 10^3/uL (1.8-7.7); Neutrophils % 57.5 %; Nucleated Red Blood Cells % 0 %; Platelet Count 233 10^3/cmm (130-400); Red Cell Distribution Width 14.8 % (12.1-15.1); White Blood Count 4.5 10^3/uL (4.0-10.0)
[2020-06-18 07:24] LABS: INR 1.11 (0.8-1.2)
[2020-06-18 08:05] LABS: Slide Review Slide Review Perform
[2020-06-18 08:24] LABS: Partial Thromboplastin Time 37.4 SECONDS (23.9-36.7)
[2020-06-18] MEDS: nicotine 14 mg Patch 1 PATCH TRANSDERMA (08:26)
[2020-06-18 08:34] LABS: Albumin Level 2.5 g/dL (3.5-5.2); Alkaline Phosphatase 428 IU/L (35-105); Blood Urea Nitrogen 6 mg/dL (6-20); Carbon Dioxide 27 mmol/L (22-29); Chloride 99 mmol/L (98-107); Glomerular Filtration Rate 136.6 mL/min (90-130); Glucose 98 mg/dL (65-115); Magnesium 1.9 mg/dL (1.7-2.3); Osmolality Calculated 272 mOsm/kg (285-295); Phosphorus 3.3 mg/dL (2.5-4.5); Sodium 132 mmol/L (136-145); Total Bilirubin 3.9 mg/dL (0.15-1.2); Total Protein 6.5 g/dL (6.6-8.7)
[2020-06-18 08:45] LABS: Alanine Aminotransferase 2123 U/L (0-33)
[2020-06-18 09:09] LABS: Aspartate Amino Transferase 2273 U/L (0-32)
--- NOTE | 2020-06-18 09:27 | P.CONIM_ITS ---
Providers/Reason For Consult Consulting Physican/Specialty*: General Surgery Tripp Frey MD Reason for Consult*: Abnormal appearing gallbladder on imaging, right upper quadrant pain with hepatitis. Attending Physician: Robbi Hernandez History of Present Illness History of Present Illness Theodora Irene is a 40 year old female who says that she developed some diffuse abdominal pain about 3 days ago. She seems to indicate that most of it is in her upper abdomen but it moves around. She had multiple episodes of vomiting with some nausea, but denies hematemesis. She says she has not had a bowel movement in 3 days, which is not unusual for her. She continues to pass flatus. She came to the emergency room yesterday and imaging revealed a thickened gallbladder wall with some pericholecystic fluid and elevated liver function studies in the absence of any gallbladder sludge or cholelithiasis. She denies being around anyone with known hepatitis but says half this town has hepatitis. Her hepatitis A and hepatitis C tests were reactive and she was admitted for further management. The patient denies any food intolerances prior to the onset of this episode. She has been able to eat whatever she wants to. In short, she does not have what sounds to be an ongoing history of biliary colic. She has both acetaminophen and acetaminophen-containing medications on her home medication list, but says she does not take these very often. 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 She says she was accidentally stuck with a dirty needle while working at [employer] about a year ago. She was tested for HIV, hepatitis, etc. and says everything was negative at that time. Review of Systems Const: Reports: change in appetite; Denies: fever(s) GI: Reports: abdominal pain, nausea and vomiting; Denies: hematemesis, change in bowel habits, hematochezia or melena : Reports: flank pain and dysuria Musc: Reports: back pain Neuro: Reports: headache(s) (History of) Psych: Reports: anxiety and depression Meds/Allergies Home Medications and Allergies Home Medications Medication Instructions Recorded Confirmed Last Taken Type acetaminophen [Tylenol] 325 mg PO QID PRN 06/17/20 06/17/20 06/17/20 History [id number]-[id number]-tyvxifxr 1 tab PO Q6H PRN 06/17/20 06/17/20 Unknown History [Goody's Migraine Relief] Allergies Allergy/AdvReac Type Severity Reaction Status Date / Time lamotrigine [From Lamictal] Allergy ALGY-Rash Verified 06/25/19 16:33 tramadol Allergy ADR-Anxiety Verified 06/25/19 16:33 Current Medications Current Medications Generic Name Dose Route Start Last Admin Trade Name Freq PRN Reason Stop Dose Admin Famotidine 20 mg 06/18/20 00:21 06/18/20 00:39 Famotidine 20 Mg/2 Ml Inj IVP 20 mg Q12H MARIO Administration Sodium Chloride 1,000 mls @ 125 mls/hr 06/18/20 00:21 06/18/20 08:26 Sodium Chloride 0.9% IV 125 mls/hr .Q8H MARIO Administration Morphine Sulfate 2 mg 06/18/20 00:21 06/18/20 05:48 Morphine 4 Mg/Ml Sdv 1 Ml IVP 2 mg Q4H PRN Administration SEVERE PAIN Nicotine 1 patch 06/18/20 09:00 06/18/20 08:26 Nicotine 14 Mg Patch TRANSDERMA 1 patch DAILY MARIO Administration PFSH Acute PFSH: Medical History Bipolar disorder History of intravenous drug use in remission Surgical History H/O tubal ligation Family History Father Cancer Testicular cancer Social History (Updated 06/18/20 @ 09:44 by Tripp Frey MD) Smoking and tobacco status: current every day smoker cigarettes Packs smoked per day: 0.25 Years cigarettes smoked: 30 [ Other cigarette details: Smoking since age 11, used to smoke a little bit more ] Alcohol intake: never Substance/Drug Use: former 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, 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 Female Reproductive History: Date of last menstrual period: 11/21/19 Vitals/I&O/Wt Last Vital Signs Temp 98.4 F 06/18/20 08:00 Pulse 86 06/18/20 08:00 Resp 18 06/18/20 08:00 BP 99/61 06/18/20 08:00 Pulse Ox 98 06/18/20 00:06/17/20 06/18/20 06/18/20 22:59 06:59 14:59 Intake Total 1050 / 1050 970.833 / 970.833 Balance 1050 / 1050 970.833 / 970.833 Weight last 48 hrs Weight 160 lb Physical Exam Narrative: EXAM NARRATIVE: The patient was encountered in her hospital room. She does not appear to be in any distress. The pupils are equal. The dentition is poor. No carotid bruits are heard. The lungs are clear anteriorly. The heart is regular. The abdomen is mildly obese but is soft and has bowel sounds. She does seem to have tenderness, however, especially in the right upper quadrant but seems to have discomfort even in anticipation of me touching her abdomen; she will laugh and joke at the same time, however. The extremities reveal no edema. Neurologically she appears to be grossly intact. Data Labs: Other Labs: Laboratory Tests 06/18/20 06:46 Total Bilirubin 3.9 H AST 2273 H ALT 2123 H Alkaline Phosphata se 428 H Albumin 2.5 L Micro: Micro: Microbiology 06/17/20 21:02 Blood Culture - Pr eliminary Blood SPECIMEN COLLE KAUR 06/17/20 20:08 Blood Culture - Pr eliminary Blood SPECIMEN [facility] Imaging^: CT Abd/Pel: Radiologist's impression: CT abdomen/pelvis 06/17/2020 IMPRESSION: 1. Findings raising concern for acute acalculous cholecystitis. 2. Moderate amount of free fluid in the pouch of Blayne. 3. Hepatomegaly with moderate periportal edema. 4. Splenomegaly. 5. Few marginally prominent retroperitoneal pericaval/periaortic lymph nodes. Clinical significance indeterminate. US: Radiologist's impression: Gallbladder ultrasound 06/17/2020 IMPRESSION: Acute acalculous cholecystitis. A&P Assessment and plan (1) Abnormal computed tomography of gallbladder: While acalculus cholecystitis is a consideration, the majority of patients with acute hepatitis A (particularly in the female gender) can have an abnormal appearing gallbladder with gallbladder wall thickening and possibly pericholecystic fluid due to the diffuse hepatocellular disease. The hypoalbuminemia can also contribute to gallbladder wall thickening. This appearance will typically resolve within weeks. Consequently, I do think surgery necessarily needs to be entertained at this time. Having said that, the patient does have a history of intravenous drug use and Cryptosporidium and cytomegalovirus infections of the gallbladder have been seen with HIV infection. I discussed repeating her HIV testing and she seems agreeable. I will be happy to continue seeing the patient while she is hospitalized. Status: Inactive (2) Right upper quadrant pain: As above. Status: Acute (3) Elevated LFTs: Status: Acute (4) History of intravenous drug use in remission: Repeat HIV testing. Status: Inactive (5) Acute hepatitis A: Status: Acute (6) Hepatitis C infection: Status: Acute Consult Attestations Medical Necessity Statement: See admitting service's notation. 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
--- NOTE | 2020-06-18 09:49 | P.PN_ITS ---
Subjective Subjective: Interval history: He is complaining of quite a bit of abdominal discomfort, a lot of it is hypogastric, radiating to her back. Also epigastric. Says that morphine is not working for her. Asking for something else to take care of the pain. Vitals/I&O/Wt Last Vital Signs Temp 98.4 F 06/18/20 08:00 Pulse 86 06/18/20 08:00 Resp 18 06/18/20 08:00 BP 99/61 06/18/20 08:00 Pulse Ox 98 06/18/20 00:21 06/17/20 06/18/20 06/18/20 22:59 06:59 14:59 Intake Total 1050 / 1050 970.833 / 970.833 Balance 1050 / 1050 970.833 / 970.833 Weight last 48 hrs Weight 72.575 kg Physical Exam Const: COMMON NORMALS: no acute distress and patient oriented x3 HENMT: COMMON NORMALS: oropharynx normal Neck/C-Spine: COMMON NORMALS: no JVD Resp: COMMON NORMALS: normal respiratory effort and clear to auscultation bilaterally AUSCULTATION: clear to auscultation bilaterally Cardio: COMMON NORMALS: no JVD, regular rhythm, S1 normal heart sound present, S2 normal heart sound present and No murmurs present (Cardio) RHYTHM: regular rhythm HEART SOUNDS: S1 normal heart sound present and S2 normal heart sound present GI: COMMON NORMALS: Normal to inspection, nondistended, normoactive bowel sounds present, Soft to palpation and non-tender PALPATION: Yes Soft to p alpation Extremity: COMMON NORMALS: no joint enlargement and no pedal edema Neuro: COMMON NORMALS: patient oriented x3 and moves all extremities Skin: COMMON NORMALS: no rashes or lesions noted GENERAL SKIN EXAM: no rashes or lesions noted Data : 06/18/20 06:46 06/18/20 06:46 Other Labs: Abnormal lab results 06/17/20 06/17/20 06/17/20 Range/Units 18:30 18:40 19:00 MCH 27.8 L (28.0-34.0) pg MPV 12.0 H (7.4-10.4) fL PT (12.1-14.9) SECONDS APTT (23.9-36.7) SECONDS Sodium 133 L (136-145) mmol/L GFR Calculation 136.6 H (90-130) mL/min Glucose 117 H (65-115) mg/dL Calculated Osmolality 275 L (285-295) mOsm/kg Calcium 7.8 L (8.5-10.5) mg/dL Total Bilirubin 3.5 H (0.15-1.2) mg/dL AST 2186 H (0-32) U/L ALT 1979 H (0-33) U/L Alkaline Phosphatase 474 H (35-105) IU/L Total Protein (6.6-8.7) g/dL Albumin 2.6 L (3.5-5.2) g/dL Urine Protein 1+ H (Negative) Urine Ketones 1+ H (Negative) Urine Bilirubin 3+ H (Negative) Urine Urobilinogen 4+ H (Negative) mg/dL Ur Leukocyte Esterase Trace H (Negative) Urine RBC 0-4 H (0-2) /hpf Urine WBC 0-4 H (0-5) /hpf Ur Squamous Epith Cells 15-25 H (0-5) /hpf Calcium Oxalate Crystal 10-15 H /hpf Hepatitis A IgM Ab (Nonreactive) Hepatitis C Antibody (Nonreactive) 06/17/20 06/17/20 06/18/20 Range/Units 19:00 21:24 06:46 MCH (28.0-34.0) pg MPV (7.4-10.4) fL PT 15.60 H (12.1-14.9) SECONDS APTT 37.5 H 37.4 H (23.9-36.7) SECONDS Sodium (136-145) mmol/L GFR Calculation (90-130) mL/min Glucose (65-115) mg/dL Calculated Osmolality (285-295) mOsm/kg Calcium (8.5-10.5) mg/dL Total Bilirubin (0.15-1.2) mg/dL AST (0-32) U/L ALT (0-33) U/L Alkaline Phosphatase (35-105) IU/L Total Protein (6.6-8.7) g/dL Albumin (3.5-5.2) g/dL Urine Protein (Negative) Urine Ketones (Negative) Urine Bilirubin (Negative) Urine Urobilinogen (Negative) mg/dL Ur Leukocyte Esterase (Negative) Urine RBC (0-2) /hpf Urine WBC (0-5) /hpf Ur Squamous Epith Cells (0-5) /hpf Calcium Oxalate Crystal /hpf Hepatitis A IgM Ab Reactive H (Nonreactive) Hepatitis C Antibody Reactive H (Nonreactive) 06/18/20 06/18/20 Range/Units 06:46 06:46 MCH 27.7 L (28.0-34.0) pg MPV 11.9 H (7.4-10.4) fL PT (12.1-14.9) SECONDS APTT (23.9-36.7) SECONDS Sodium 132 L (136-145) mmol/L GFR Calculation 136.6 H (90-130) mL/min Glucose (65-115) mg/dL Calculated Osmolality 272 L (285-295) mOsm/kg Calcium 8.0 L (8.5-10.5) mg/dL Total Bilirubin 3.9 H (0.15-1.2) mg/dL AST 2273 H (0-32) U/L ALT 2123 H (0-33) U/L Alkaline Phosphatase 428 H (35-105) IU/L Total Protein 6.5 L (6.6-8.7) g/dL Albumin 2.5 L (3.5-5.2) g/dL Urine Protein (Negative) Urine Ketones (Negative) Urine Bilirubin (Negative) Urine Urobilinogen (Negative) mg/dL Ur Leukocyte Esterase (Negative) Urine RBC (0-2) /hpf Urine WBC (0-5) /hpf Ur Squamous Epith Cells (0-5) /hpf Calcium Oxalate Crystal /hpf Hepatitis A IgM Ab (Nonreactive) Hepatitis C Antibody (Nonreactive) Micro: Microbiology 06/17/20 21:02 Blood Culture - Preliminary Blood SPECIMEN COLLECTED 06/17/20 20:08 Blood Culture - Preliminary Blood SPECIMEN COLLECTED A&P Assessment and plan (1) Acute hepatitis A: Acute hepatitis, AST with slight worsening 2273, ALT slightly worse 2123. Alk phos slightly better at 428. T bili slightly worse 3.5-3.9. INR improving, down to 1.2. She is on trial of CLD. Continue supportive care with IV hydration. Pain control. Says morphine is not working. Avoid Tylenol. We will add oxycodone. Increase morphine to 4 mg as needed. Nausea control. She denies eating at any restaurants or fast food places. She has a roommate at home. States she will discuss with them. Status: Acute (2) Acute acalculous cholecystitis: Alk phos slightly better at 428. T bili slightly worse 3.5-3.9. Appreciate surgical consultation regarding question of whether imaging findings may represent possible acalculus cholecystitis. Status: Acute (3) Hepatitis C infection: Denies past history of hepatitis, however, I do see hepatitis C antibody reactive back as far as September 2017. Has history of IV drug use, but says has not used anything recently. HIV testing. Status: Acute Attestations Medical Necessity Statement*: Continue admission for cyst management of acute hepatitis a with underlying hepatitis C, gallbladder abnormality on imaging. Coding Level of Care Code Acute Civil Rights Investigator for [facility] Diagnoses Acute hepatitis A B15.9 Acute acalculous cholecystitis K81.0 Hepatitis C infection B19.20
[2020-06-18] MEDS: oxyCODONE 5 mg IR Tab/Cap 10 MG PO ×3 (10:05→22:14)
[2020-06-18 12:00] LABS: Add Urine Microscopic? YES; Bilirubin Urine 3+ (Negative); Blood Urine 2+ (Negative); Glucose Urine UA Norm (Normal); Ketones Urine Negative (Negative); Leukocyte Esterase Urine 1+ (Negative); Nitrate Urine Negative (Negative); Protein Urine Neg (Negative); Urine Appearance Hazy (CLEAR); Urine Color Amber (Yellow); Urobilinogen Urine 4+ mg/dL (Negative); pH Urine 5 (5-7)
[2020-06-18 12:01] LABS: RBC Urine 0-4 /hpf (0-2); WBC Urine 15-25 /hpf (0-5)
[2020-06-18 12:04] LABS: Add Urine Culture? No; Amorphous Sediment Urine 4+ /hpf; Bacteria Urine TRACE /hpf
[2020-06-18 12:39] LABS: HIV 1 & 2 Antibody Non-Reactive (Non-Reactiv); HIV 1 & 2 Antigen Non-Reactive (Non-Reactiv)
[2020-06-18 22:10] LABS: Bilirubin Urine Neg (Negative); Blood Urine Neg (Negative); Glucose Urine UA 2+ (Normal); Ketones Urine 1+ (Negative); Nitrate Urine Negative (Negative); Protein Urine Trace (Negative); Specific Gravity, Urine 1.015 (1.005-1.030); Urine Appearance Clear (CLEAR); Urine Color Yellow (Yellow); pH Urine 5 (5-7)
[2020-06-18 22:11] LABS: Add Urine Microscopic? YES; Leukocyte Esterase Urine Trace (Negative); Urobilinogen Urine 1 mg/dL (Negative)
[2020-06-19] VITALS (10 sets, daily range): BP systolic 95–115; BP diastolic 63–75; PULSE 82–93; RESP 16–19; TEMP 36.2–37.7; O2SAT 92–96
[2020-06-19] MEDS: sodium chloride 0.9% 1,000 ML 125 ML IV ×3 (01:19→15:55)
[2020-06-19] MEDS: oxyCODONE 5 mg IR Tab/Cap 10 MG PO ×3 (04:09→23:54)
[2020-06-19 07:03] LABS: Basophils % 0.7 %; Eosinophils % 0.9 %; Hematocrit 40.6 % (37.0-47.0); Hemoglobin 13.3 g/dL (11.5-15.3); Lymphocytes # 1.9 10^3/uL (0.8-4.8); Lymphocytes % 40.6 %; Mean Corpuscular HGB Conc 32.8 g/dL (30.0-36.0); Mean Corpuscular Hemoglobin 27.9 pg (28.0-34.0); Mean Corpuscular Volume 85.1 fL (81-99); Mean Platelet Volume 12.1 fL (7.4-10.4); Monocytes # 0.4 10^3/uL (0.2-0.9); Monocytes % 9.3 %; Neutrophils # 2.21 10^3/uL (1.8-7.7); Neutrophils % 47.8 %; Nucleated Red Blood Cells % 0 %; Platelet Count 262 10^3/cmm (130-400); Red Blood Count 4.77 10^6/uL (4.1-5.3); Red Cell Distribution Width 15.3 % (12.1-15.1); White Blood Count 4.6 10^3/uL (4.0-10.0)
[2020-06-19 07:14] LABS: INR 1.12 (0.8-1.2)
[2020-06-19 07:15] LABS: Partial Thromboplastin Time 39.9 SECONDS (23.9-36.7)
[2020-06-19 07:31] LABS: Albumin Level 2.5 g/dL (3.5-5.2); Alkaline Phosphatase 389 IU/L (35-105); Blood Urea Nitrogen 3 mg/dL (6-20); Calcium 7.9 mg/dL (8.5-10.5); Carbon Dioxide 26 mmol/L (22-29); Chloride 102 mmol/L (98-107); Creatinine Clr Calc Pharmacy 178.4705; Glomerular Filtration Rate 176.8 mL/min (90-130); Glucose 77 mg/dL (65-115); Osmolality Calculated 273 mOsm/kg (285-295); Sodium 134 mmol/L (136-145); Total Bilirubin 5.4 mg/dL (0.15-1.2); Total Protein 6.5 g/dL (6.6-8.7)
[2020-06-19 07:44] LABS: Alanine Aminotransferase 2070 U/L (0-33)
[2020-06-19 07:52] LABS: Aspartate Amino Transferase 2175 U/L (0-32)
[2020-06-19] MEDS: cefTRIAXone 1,000 MG in sodium chloride 0.9% (plus) 50 ML 100 MG IV (09:27)
--- NOTE | 2020-06-19 09:35 | P.PN_ITS ---
Subjective Subjective: Interval history: The patient says she is feeling better. Her back pain is gone, but she still has some right upper quadrant discomfort. She is passing flatus. She said she is hungry and would like some solid food. Vitals/I&O/Wt Last Vital Signs Temp 98.9 F 06/19/20 07:11 Pulse 86 06/19/20 07:11 Resp 16 06/19/20 07:11 BP 103/68 06/19/20 07:11 Pulse Ox 93 06/19/20 07:11 06/18/20 06/19/20 06/19/20 22:59 06:59 14:59 Intake Total 925 / 3395.833 1500 / 3395.833 1433.333 / 1433.333 Output Total 1400 / 1500 Balance -475 / 1776.097 9051 / 6234.191 1103.333 / 1433.333 Weight last 48 hrs Weight 160 lb Physical Exam Narrative: EXAM NARRATIVE: The patient continues to have some hypoactive bowel sounds and right upper quadrant discomfort on exam. Data : 06/19/20 06:23 06/19/20 06:23 Micro: Microbiology 06/17/20 21:02 Blood Culture - Preliminary Blood NEGATIVE TO DATE 06/17/20 20:08 Blood Culture - Preliminary Blood NEGATIVE TO DATE A&P Assessment and plan (1) Abnormal computed tomography of gallbladder: While acalculus cholecystitis is a consideration, the majority of patients with acute hepatitis A (particularly in the female gender) can have an abnormal appearing gallbladder with gallbladder wall thickening and possibly pericholecystic fluid due to the diffuse hepatocellular disease. The hypoalbuminemia can also contribute to gallbladder wall thickening. This appearance will typically resolve within weeks. The patient seems to be subjectively improved. HIV testing is negative. Given the patient's normal white blood cell count, afebrile status, etc., I suspect the abnormal gallbladder appearance is secondary to the hepatitis findings. All of the liver function tests are slightly improved with the exception of the bili tolbert which continues to climb. I will continue to follow with you. Status: Inactive (2) Right upper quadrant pain: As above. Status: Acute (3) Elevated LFTs: Status: Acute (4) History of intravenous drug use in remission: Repeat HIV testing. Status: Inactive (5) Acute hepatitis A: Status: Acute (6) Hepatitis C infection: Status: Acute Attestations Medical Necessity Statement*: See admitting service's notation. 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
--- NOTE | 2020-06-19 11:17 | PC.NURSE ---
Reported patients blood pressure to Manda Kramer RN
[2020-06-19] MEDS: famotidine 20 mg/2 mL INJ IVP (12:34)
--- NOTE | 2020-06-19 13:29 | PC.NURSE ---
at approximately 1212 pt walked out of room passed nurses station. Met patient at the elevator, and she stated I'm going to get something to eat. Directed pt. back to room and Dr Hernandez notified of situation. He talked to patient in room and verbal order received to give the patient a sandwich for lunch.
--- NOTE | 2020-06-19 13:43 | PC.NURSE ---
Rcvd order from Dr Hernandez for drug screen. poem writer put order in for drug screen.
--- NOTE | 2020-06-19 14:02 | PM.PN ---
Subjective Subjective: Interval history: Today she had gotten aggravated multiple times with the nurses insisting that she get her diet advanced. She was trying to sneak out several times either downstairs to buy something, or perhaps even to leave. She is visited by a male visitor, appears perhaps a friend. During my visit she reports she is still having abdominal pain, today upper part of her belly and toward the right side. She reports overall pain is somewhat better, and that she insists that she gets some food. She is to the point that she may leave the hospital. Discussed with her in detail regarding elevation of bilirubin, as well as still very high other liver parameters. Discussed concerned that although suspicion for active bacterial/other pathogen gallbladder infection is lower, there is still a nonzero small chance that an infection is present. I would really caution her against leaving the hospital too early until we see that her bilirubin truly is improving alongside other liver parameters. Discussed risks if infection is present, risks of sepsis, risks of . Discussed risks of too early diet advancement, including that this may worsen her symptoms by triggering her gallbladder to contract. She insists to still have some diet. Rather than have her leave the hospital we are going to cautiously give her a small low-fat meals to try. Monitor. She is agreeable. States that she understands the risks, would like to proceed, and will stay to continue care. Vitals/I&O/Wt Last Vital Signs Temp 97.9 F 06/19/20 11:16 Pulse 85 06/19/20 11:16 Resp 16 06/19/20 11:16 BP 95/63 06/19/20 11:16 Pulse Ox 93 06/19/20 11:16 06/18/20 06/19/20 06/19/20 22:59 06:59 14:59 Intake Total 925 / 7064.898 6435 / 3395.833 1483.333 / 1483.333 Output Total 1400 / 1500 300 / 300 Balance -475 / 381.491 8782 / 4412.839 6236.333 / 1183.333 Weight last 48 hrs Weight 72.575 kg Physical Exam Const: COMMON NORMALS: no acute distress and patient oriented x3 HENMT: COMMON NORMALS: oropharynx normal Neck/C-Spine: COMMON NORMALS: no JVD Resp: COMMON NORMALS: normal respiratory effort and clear to auscultation bilaterally AUSCULTATION: clear to auscultation bilaterally Cardio: COMMON NORMALS: no JVD, regular rhythm, S1 normal heart sound present, S2 normal heart sound present and No murmurs present (Cardio) RHYTHM: regular rhythm HEART SOUNDS: S1 normal heart sound present and S2 normal heart sound present GI: COMMON NORMALS: Normal to inspection, nondistended, normoactive bowel sounds present and Soft to palpation PALPATION: Yes Soft to palpation RECTAL EXAM: tenderness (Abdominal tenderness improving. Decreased elsewhere, still present in RUQ) Extremity: COMMON NORMALS: no joint enlargement and no pedal edema Neuro: COMMON NORMALS: patient oriented x3 and moves all extremities Skin: COMMON NORMALS: no rashes or lesions noted GENERAL SKIN EXAM: no rashes or lesions noted Data : 06/19/20 06:23 06/19/20 06:23 Micro: Microbiology 06/17/20 21:02 Blood Culture - Preliminary Blood NEGATIVE TO DATE 06/17/20 20:08 Blood Culture - Preliminary Blood NEGATIVE TO DATE A&P Assessment and plan (1) Acute hepatitis A: Discussed with her regarding today's results. AST and ALT slightly decreased, but still very high. T bili higher today. Discussed with surgery, discussed with her. We will continue to monitor level, her condition, symptoms, and any signs of developing/worsening infection/sepsis. Discussed small chance of possibility of bacterial infection, although so far this appears to have been less likely. Suspect that this is somewhat a delayed response. Cautioned her against leaving the hospital prematurely. Follow-up liver parameters. INR. Continue supportive care with IV hydration. Pain control. Says morphine is not working. Avoid Tylenol. We will add oxycodone. Increase morphine to 4 mg as needed. Nausea control. She denies eating at any restaurants or fast food places. Status: Acute (2) Acute acalculous cholecystitis: As above. Continue to monitor. Given overall improvement, lack of sepsis, changes consider likely secondary to acute viral hepatitis, however, continue to monitor for any signs of evolving or developing bacterial infection. Doubt a calculus cholecystitis. She so far remained very stable despite the severity of her liver injury, symptomatically is improving. Feels hungry. Status: Acute (3) Hepatitis C infection: Denies past history of hepatitis, however, I do see hepatitis C antibody reactive back as far as September 2017. Has history of IV drug use, but says has not used anything recently. As she is acting a little bit unusual today, with her friend visiting, and trying to leave leave the medical floor and supervised, we are adding urine drug screen to the morning urine sample. HIV testing negative. Status: Acute (4) UTI (urinary tract infection): With collected urine several times, and each time sample is somewhat contaminated to various degree with squamous epithelial cells. Still with pyuria. Bacteriuria. Discussed with her. Concern is that there is a UTI in combination with her symptoms on presentation. Requested urine culture. Discussed with her and we are starting Rocephin for now. Status: Acute Attestations Medical Necessity Statement*: Continue admission for assessment of management of acute hepatitis A superimposed on chronic hepatitis C, with gallbladder abnormality and rising bilirubin, possible UTI. Coding Level of Care Code Acute Comprehensive Ophthalmologist for [facility] Fwd Diagnoses Acute hepatitis A B15.9 Acute acalculous cholecystitis K81.0 Hepatitis C infection B19.20 UTI (urinary tract infection) N39.0
[2020-06-19 14:36] LABS: Amphetamines Screen Urine Positive (Negative); Barbiturates Screen Urine Negative (Negative); Benzodiazepines Screen Urine Negative (Negative); Cocaine Screen Urine Negative (Negative); Opiate Screen Urine Negative (Negative); PCP Screen Urine Negative (Negative); THC Screen Urine Positive (Negative)
--- NOTE | 2020-06-19 14:48 | PC.NURSE ---
Notified Dr Hernandez of patient's drug screen results.
--- NOTE | 2020-06-19 17:54 | PC.NURSE ---
tobacco and ashes found on toilet seat in bathroom. typewriter mechanic notified Charge KATHARINA Goldstein.
--- NOTE | 2020-06-19 18:05 | PC.NURSE ---
SCOTT Roper talked to patient about the importance of not smoking in facility. Patient refused to allow nursing staff to search her belongings. Patient gave up senior national account manager to nursing staff and senior national account manager was placed patient's chart. Patient said I have not been smoking and I have been sleeping for the 4 days that I have been here. After security left the floor, patient is up in room and slamming doors, refusing to leave room door open.
[2020-06-20] VITALS (9 sets, daily range): BP systolic 106–135; BP diastolic 67–91; PULSE 66–92; RESP 16–22; TEMP 36.4–37.2; O2SAT 94–97
[2020-06-20] MEDS: famotidine 20 mg/2 mL INJ IVP ×2 (00:25→13:36)
[2020-06-20] MEDS: sodium chloride 0.9% 1,000 ML 125 ML IV ×2 (00:25→08:29)
[2020-06-20] MEDS: oxyCODONE 5 mg IR Tab/Cap 10 MG PO ×3 (07:35→23:25)
[2020-06-20] MEDS: cefTRIAXone 1,000 MG in sodium chloride 0.9% (plus) 50 ML 100 MG IV (08:25)
--- NOTE | 2020-06-20 09:07 | PM.PN ---
Subjective Subjective: Interval history: The patient refused lab draws this morning. That lab bitch is ignorant. She wants to go home. She says she still hurts, however. Vitals/I&O/Wt Last Vital Signs Temp 97.8 F 06/20/20 07:24 Pulse 84 06/20/20 07:24 Resp 18 06/20/20 07:35 BP 128/85 06/20/20 07:24 Pulse Ox 96 06/20/20 07:35 06/19/20 06/20/20 06/20/20 22:59 06:59 14:59 Intake Total 2591.667 / 5555.000 1480 / 5555.000 1000 / 1000 Output Total 350 / 1350 Balance 2241.667 / 4205.000 1480 / 4205.000 1000 / 1000 Physical Exam Narrative: EXAM NARRATIVE: The patient seems angry and indifferent regarding any further treatment this morning. I did not push on her abdomen as a result. Data : 06/19/20 06:23 06/19/20 06:23 Micro: Microbiology 06/19/20 09:45 Urine Culture - Preliminary Urine,Clean Catch A&P Assessment and plan (1) Abnormal computed tomography of gallbladder: While acalculus cholecystitis is a consideration, the majority of patients with acute hepatitis A (particularly in the female gender) can have an abnormal appearing gallbladder with gallbladder wall thickening and possibly pericholecystic fluid due to the diffuse hepatocellular disease. The hypoalbuminemia can also contribute to gallbladder wall thickening. This appearance will typically resolve within weeks. HIV testing is negative. She was positive for amphetamines and marijuana in her drug screen, however. The patient now says she wants to go home and is refusing lab draws. I told her that it is difficult for us to know what to do if we do not have a good idea of what her body is doing with laboratory studies, etc. She seems indifferent to my comments. Status: Inactive (2) Right upper quadrant pain: As above. Seemingly improved since admission with resolution of the back pain. Status: Acute (3) Elevated LFTs: As above. Status: Acute (4) History of intravenous drug use in remission: Repeat HIV testing. Status: Inactive (5) Acute hepatitis A: Status: Acute (6) Hepatitis C infection: Status: Acute Attestations Medical Necessity Statement*: See admitting service's notation. Coding Level of Care Code Acute [employer] Cook for Judith Red Diagnoses Abnormal computed tomography of gallbladder R93.2 Right upper quadrant pain R10.11 Elevated LFTs R79.89 History of intravenous drug use in remission Z87.898 Acute hepatitis A B15.9 Hepatitis C infection B19.20
[2020-06-20 10:02] LABS: Eosinophils # 0.1 10^3/uL (0.0-0.8); Eosinophils % 1.3 %; Hematocrit 38.6 % (37.0-47.0); Hemoglobin 12.4 g/dL (11.5-15.3); Lymphocytes # 1.8 10^3/uL (0.8-4.8); Lymphocytes % 46.5 %; Mean Corpuscular HGB Conc 32.1 g/dL (30.0-36.0); Mean Corpuscular Hemoglobin 27.5 pg (28.0-34.0); Mean Corpuscular Volume 85.6 fL (81-99); Mean Platelet Volume 11.3 fL (7.4-10.4); Monocytes # 0.4 10^3/uL (0.2-0.9); Monocytes % 10.6 %; Neutrophils # 1.55 10^3/uL (1.8-7.7); Neutrophils % 40.1 %; Nucleated Red Blood Cells % 0 %; Platelet Count 247 10^3/cmm (130-400); Red Blood Count 4.51 10^6/uL (4.1-5.3); Red Cell Distribution Width 15.9 % (12.1-15.1); White Blood Count 3.9 10^3/uL (4.0-10.0)
[2020-06-20 10:15] LABS: INR 1.11 (0.8-1.2)
[2020-06-20 10:16] LABS: Partial Thromboplastin Time 40.9 SECONDS (23.9-36.7)
[2020-06-20 10:21] LABS: Albumin Level 2.3 g/dL (3.5-5.2); Alkaline Phosphatase 324 IU/L (35-105); Anion Gap 11.5 (5-19); Blood Urea Nitrogen 3 mg/dL (6-20); Calcium 7.9 mg/dL (8.5-10.5); Carbon Dioxide 27 mmol/L (22-29); Chloride 102 mmol/L (98-107); Creatinine Clr Calc Pharmacy 178.4705; Globulin 3.9 g/dL (1.3-4.6); Glomerular Filtration Rate 176.8 mL/min (90-130); Glucose 117 mg/dL (65-115); Osmolality Calculated 282 mOsm/kg (285-295); Potassium 3.5 mmol/L (3.5-5.1); Sodium 137 mmol/L (136-145); Total Bilirubin 5.8 mg/dL (0.15-1.2); Total Protein 6.2 g/dL (6.6-8.7)
[2020-06-20 10:36] LABS: Alanine Aminotransferase 1260 U/L (0-33)
[2020-06-20 10:40] LABS: Aspartate Amino Transferase 1003 U/L (0-32)
--- NOTE | 2020-06-20 15:19 | PM.PN ---
Subjective Subjective: Interval history: Patient was very emotional and was crying during my interview with her she kept complaining about not letting her out to smoke or advance her diet, she also complaining of headache which she is attributing to nicotine patches which were offered before. She has made multiple comments about leaving AGAINST MEDICAL ADVICE. During MDR I requested the nurse to report her infection of hepatitis A Vitals/I&O/Wt Last Vital Signs Temp 97.7 F 06/20/20 11:10 Pulse 66 06/20/20 11:10 Resp 20 H 06/20/20 11:10 BP 135/91 06/20/20 11:10 Pulse Ox 95 06/20/20 11:10 06/20/20 06/20/20 06/20/20 06:59 14:59 22:59 Intake Total 1480 / 5555.000 1779 Balance 1480 / 4205.000 1779 Physical Exam Narrative: EXAM NARRATIVE: Middle-age female resting in her bed was very emotionally labile, Not really cooperative during my evaluation however she let me examine her right upper quadrant which was tender on mild palpation She endorsed feeling thirsty and hungry and wanted to eat regular diet however she experienced nausea and more pain after eating Hemodynamically stable, Still has sclera icteric S1, S2 no signs of heart failure Lower extremity no edema No neurological deficit cross normal movements, GCS 15 Irritable mood/emotionally labile No joint swelling Data : 06/20/20 09:48 06/20/20 09:48 Micro: Microbiology 06/19/20 09:45 Urine Culture - Preliminary Urine,Clean Catch A&P Assessment and plan (1) Acute hepatitis A: Status: Acute (2) Hepatitis C infection: Status: Acute (3) Right upper quadrant pain: Status: Acute (4) Acute acalculous cholecystitis: Status: Acute (5) Elevated LFTs: Status: Acute Additional A&P Information Acute hepatitis A Elevated liver enzymes with jaundice She is not letting us draw her blood work today I would advance her diet Avoid Tylenol Reported to infection control Hepatitis C: We will request PCR patient has never been treated for hepatitis C endorses to polysubstance abuse HIV panel negative Right upper quadrant pain a calculus cholecystitis Continue ceftriaxone General surgery recommendations: Reviewed Continue conservative management for now Advance diet today DVT prophylaxis Lovenox She will need a new PCP appointment as well, patient is stating that she lives with group of other people who are homeless, did not share any other information however stated that 2 of her children are living with her She is not contemplating right now to quit smoking or marijuana however denies use of methamphetamine which was positive in her drug screen Anticipating discharge if she is able to tolerate diet and liver enzymes are trending down in next 24 hours Attestations Medical Necessity Statement*: Patient still have elevated liver enzymes with tender right upper quadrant, advancing diet today, anticipating discharge tomorrow if liver enzymes are trending downward Time Spent in Patient Care: (>than 50% of time spent in counselling and/or direct pt care on unit). 30mins Coding Level of Care Code Acute Dough Mixer Operator for Judith Red Diagnoses Acute hepatitis A B15.9 Hepatitis C infection B19.20 Right upper quadrant pain R10.11 Acute acalculous cholecystitis K81.0 Elevated LFTs R79.89
[2020-06-20] MEDS: ketorolac 30 mg/mL INJ 15 MG IVP (15:56)
[2020-06-20] MEDS: ondansetron 2 mg/ML SDV 2 mL 4 MG IVP (15:56)
[2020-06-20] MEDS: polyethylene glycol 3350 Pkt 17 gm PO (18:08)
--- NOTE | 2020-06-20 19:41 | PC.RESP ---
Smoking Cessation information sent to patient.
[2020-06-21] VITALS: BP 109/76; PULSE 75; RESP 17; TEMP 36.3; O2SAT 98
[2020-06-21] MEDS: famotidine 20 mg/2 mL INJ IVP (00:27)
[2020-06-21 04:00] VITALS: BP 116/77; PULSE 79; RESP 15; TEMP 36.4; O2SAT 92
[2020-06-21 06:18] LABS: Basophils % 0.5 %; Eosinophils # 0.1 10^3/uL (0.0-0.8); Eosinophils % 1.5 %; Hematocrit 42.7 % (37.0-47.0); Hemoglobin 13.5 g/dL (11.5-15.3); Lymphocytes # 2.1 10^3/uL (0.8-4.8); Lymphocytes % 34.7 %; Mean Corpuscular HGB Conc 31.6 g/dL (30.0-36.0); Mean Corpuscular Hemoglobin 27.2 pg (28.0-34.0); Mean Corpuscular Volume 86.1 fL (81-99); Mean Platelet Volume 11.6 fL (7.4-10.4); Monocytes # 0.5 10^3/uL (0.2-0.9); Monocytes % 7.7 %; Neutrophils # 3.31 10^3/uL (1.8-7.7); Neutrophils % 55.3 %; Nucleated Red Blood Cells % 0 %; Platelet Count 308 10^3/cmm (130-400); Red Blood Count 4.96 10^6/uL (4.1-5.3); Red Cell Distribution Width 16.2 % (12.1-15.1)
[2020-06-21 06:46] LABS: Slide Review Slide Review Perform
[2020-06-21 07:02] LABS: Albumin Level 2.5 g/dL (3.5-5.2); Alkaline Phosphatase 367 IU/L (35-105); Anion Gap 7.9 (5-19); Blood Urea Nitrogen 6 mg/dL (6-20); Calcium 8.4 mg/dL (8.5-10.5); Carbon Dioxide 31 mmol/L (22-29); Chloride 100 mmol/L (98-107); Globulin 4.8 g/dL (1.3-4.6); Glomerular Filtration Rate 136.6 mL/min (90-130); Glucose 95 mg/dL (65-115); Osmolality Calculated 277 mOsm/kg (285-295); Potassium 3.9 mmol/L (3.5-5.1); Sodium 135 mmol/L (136-145); Total Bilirubin 6.9 mg/dL (0.15-1.2); Total Protein 7.3 g/dL (6.6-8.7)
[2020-06-21 07:16] LABS: Alanine Aminotransferase 1132 U/L (0-33); Aspartate Amino Transferase 822 U/L (0-32)
[2020-06-21 07:31] VITALS: BP 108/68; PULSE 76; RESP 15; TEMP 37.3; O2SAT 93
[2020-06-21] MEDS: cefTRIAXone 1,000 MG in sodium chloride 0.9% (plus) 50 ML 100 MG IV (08:36)
[2020-06-21 11:13] VITALS: BP 114/74; PULSE 80; RESP 16; TEMP 36.4; O2SAT 94
--- NOTE | 2020-06-21 11:27 | P.DS_ITS ---
Discharge Providers Date of Admission: 06/17/20 21:37 Date of Discharge: June 21, 2020 Attending Provider at Admission: Kannan Patterson Attending Provider at Discharge: Coleen Bird MD Diagnoses at Discharge Discharge Diagnosis (1) Acute hepatitis A: Status: Acute (2) Hepatitis C infection: Status: Acute (3) Right upper quadrant pain: Status: Acute (4) Acute acalculous cholecystitis: Status: Acute (5) Elevated LFTs: Status: Acute Reason for Visit Reason for Visit: N/V, SIDE PAIN Hospital Course Hospital Course 40-year-old female with history of IV drug abuse presented today with hepatitis A acute infection denied history of previous hepatitis however appear to have hepatitis C as far back as 2018. Patient was managed conservatively, general surgery was consulted for concern of cholecystitis however she was managed for a calculus cholecystitis with ceftriaxone. She kept having nausea and emesis with her food intake however her LFTs trended down. She was reported to health department as well. No surgical interventions was recommended. She also complained of dysuria which was treated with ceftriaxone. During her hospitaliz ation she seemed to have nicotine withdrawal and refused nicotine patch as well. Her drug screen was positive for marijuana and methamphetamine. She has never been treated for hepatitis C in the past, does not have a PCP or any pharmacy. Today she is feeling better her LFTs AST 822 ALT 1132 down from 1999, she has stayed afebrile, not complaining of dysuria anymore I noticed poor dental hygiene and a possible gingivitis for which I started her on clindamycin. baby formula worker was notified to arrange PCP follow-up appointment and pharmacy before her discharge. Pending lab result: Hepatitis C PCR for RNA viral load Hepatitis C antibody positive hepatitis A IgM positive HIV negative Patient was counseled on recovery of her hepatitis A she is still jaundiced with a bilirubin of 5, with downtrend of LFTs and slight improvement clinically I have asked her to follow-up with her new PCP within the next 10 days However she is homeless and does not have insurance or any good financial means she is high risk of deterioration, child protective services social worker updated. Physical Exam Narrative: EXAM NARRATIVE: Patient was laying comfortably in her bed when I entered the room She was saturating well on room air Scleral icterus present Mild tenderness right upper quadrant on palpation Appropriate mood and affect EOMI, PERRLA GCS 15 S1, S2 no complaint of chest pain No acute respite distress Patient does show signs of nicotine withdrawal Discharge Data Data Completed and Pending: Completed Studies During Hospitalization Category Date Time Status CT abdomen pelvis w con* [id number] Urge nt Cat Scan 06/17/20 18:04 Completed US gall bladder 7 [id number] Urgent Ultrasound 06/17/20 19:53 Completed Pending at discharge Category Date Time Status Blood Culture Sta t Lab 06/17/20 21:02 Results Complete Blood Co unt w/Auto AM LABS Lab 06/22/20 04:00 Ordered Comprehensive Met abolic Panel AM LA BS Lab 06/22/20 04:00 Ordered Hepatitis C RNA V iral Load Qnt Rout ine Lab 06/20/20 09:48 Received Labs from last 24 hours 06/21/20 06/21/20 06/21/20 05:26 05:26 05:26 WBC 6.0 RBC 4.96 Hgb 13.5 Hct 42.7 MCV 86.1 MCH 27.2 L MCHC 31.6 RDW 16.2 H Plt Count 308 MPV 11.6 H Neut % (Auto) 55.3 Lymph % (Auto) 34.7 [place] % (Auto) 7.7 Eos % (Auto) 1.5 Baso % (Auto) 0.5 Neut # (Auto) 3.31 Lymph # (Auto) 2.1 [place] # (Auto) 0.5 Eos # (Auto) 0.1 Baso # (Auto) 0.0 Nucleated RBC % (a uto) 0 Nucleated RBCs # 0.0 Sodium 135 L Potassium 3.9 Chloride 100 Carbon Dioxide 31 H Anion Gap 7.9 BUN 6 Creatinine 0.5 GFR Calculation 136.6 H Glucose 95 Calculated Osmolal ity 277 L Calcium 8.4 L Total Bilirubin Cancelled 6.9 H Direct Bilirubin Cancelled 5.70 H AST Cancelled 822 H ALT Cancelled 1132 H Alkaline Phosphata se Cancelled 367 H Total Protein Cancelled 7.3 Albumin Cancelled 2.5 L Globulin Cancelled 4.8 H HCV RNA (PCR) IUs/ ml HCV RNA (PCR) IU l og10 06/20/20 09:48 WBC RBC Hgb Hct MCV MCH MCHC RDW Plt Count MPV Neut % (Auto) Lymph % (Auto) [place] % (Auto) Eos % (Auto) Baso % (Auto) Neut # (Auto) Lymph # (Auto) [place] # (Auto) Eos # (Auto) Baso # (Auto) Nucleated RBC % (a uto) Nucleated RBCs # Sodium Potassium Chloride Carbon Dioxide Anion Gap BUN Creatinine GFR Calculation Glucose Calculated Osmolal ity Calcium Total Bilirubin Direct Bilirubin AST ALT Alkaline Phosphata se Total Protein Albumin Globulin HCV RNA (PCR) IUs/ ml Pending HCV RNA (PCR) IU l og10 Pending Vitals: Last Vital Signs Temp 97.5 F L 06/21/20 11:13 Pulse 80 06/21/20 11:13 Resp 16 06/21/20 11:13 BP 114/74 06/21/20 11:13 Pulse Ox 94 06/21/20 11:13 Discharge Plan Discharge Patient Disposition: Home Condition: Fair Prescriptions: New clindamycin HCl 150 mg Capsule 300 mg PO TID 5 Days Qty: 15 RF: 0 Discontinued Tylenol 325 mg Tablet 325 mg PO QID PRN (Reason: pain/headache) RF: 0 Goody's Migraine Relief 250-250-65 mg Tablet 1 tab PO Q6H PRN (Reason: pain/headache) RF: 0 Discharge Orders: Discharge Order (Routine); Ordered 06/21/20 Ordered By: Coleen Bird Discharge Diet: Advance as tolerated and Low Fat Discharge Activity: Resume usual activity Patient Instructions: Clindamycin (By mouth), Hepatitis A, Hepatitis C, Cholecystitis (GEN), Urinary Tract Infection in Women (GEN), Methamphetamine Abuse (DC) Activity Restrictions/Additional Instructions: Please advance diet as tolerated but use low-fat Do not take Tylenol because of hepatitis A Please follow-up with PCP within the next 10 days Take antibiotics for next 5 days for gingivitis clindamycin 300 mg 3 times a day In case of worsening of symptoms, persistent nausea vomiting and worsening right upper quadrant pain please come to the ER for further investigation and evaluation Abstain from methamphetamine and marijuana Discharge Attestations Time Spent in Discharge Care*: less than 30 min Quality Metrics Clinical Quality Measures During this hospital stay, did patient experience: None Coding Level of Care Code Acute [employer]way Car Repairer for Judith Fworin Diagnoses Acute hepatitis A B15.9 Hepatitis C infection B19.20 Right upper quadrant pain R10.11 Acute acalculous cholecystitis K81.0 Elevated LFTs R79.89
--- NOTE | 2020-06-21 12:10 | PC.NURSE ---
Pt d/c: Pt has been given d/c instructions. Mom is at bedside and will be her ride home. They are going to go by MARIAG frankel to [employer] picking supervisor abx.
[2020-06-21 12:31] VITALS: BP 114/74; PULSE 80; RESP 16; TEMP 36.4; O2SAT 94
[2020-06-22 11:53] LABS: HEP C RNA Viral Load Quant <1.18 NOT DETECTED Log IU/mL (NOT DETECTED); HEP C RNA Viral Load Quant <15 NOT DETECTED IU/mL (NOT DETECTED)
== END 2020-06-21 12:32 | disposition home or self-care (01) | DRG 442 ==
LOC: ER 22:07 → MEDSURG 22:21
PROVIDERS: Internal Medicine; Nurse Practitioner Family; Surgery; Admitting Provider Internal Medicine; Emergency Provider Emergency Medicine; Visit Provider Internal Medicine
DX: B15.9 Hepatitis A without hepatic coma (principal); K81.0 Acute cholecystitis; N39.0 Urinary tract infection, site not specified; F17.213 Nicotine dependence, cigarettes, with withdrawal; F31.9 Bipolar disorder, unspecified; F17.210 Nicotine dependence, cigarettes, uncomplicated; B18.2 Chronic viral hepatitis C; F11.21 Opioid dependence, in remission; K05.10 Chronic gingivitis, plaque induced; Z59.0 Homelessness
CPT/HCPCS: 12345; 36415; 74177; 76705; 80048; 80053; 80074; 80076; 80306; 81001; 82248; 83605; 83690; 83735; 84100; 84145; 84703; 85025; 85610; 85730; 87040; 87086; 87522; 87806; 93005; 96365; 96375; 99285; J0696; J1885; J2270; J2405; J2543; J3490; J7030; Q9967

== ENCOUNTER 2021-10-30 19:08 | Emergency (ER) | payer MEDICAID, SELFPAY ==
[2021-10-30 19:25] VITALS: BP 179/101; PULSE 74; RESP 18; TEMP 37.1; O2SAT 98; BMI 28.0
--- NOTE | 2021-10-30 21:05 | ED_ITS ---
HPI - General Adult General: Chief complaint: General Medical Stated complaint: Breast Nipples Bleeding Time Seen by Provider: 10/30/21 21:04 History of Present Illness: 41-year-old female comes in today with abnormal discharge from the left breast. Patient reports some areola tenderness. Patient also reports some blurred vision from left eye which is occurred since having a head injury 22 days ago. Patient appears nontoxic. Patient appears in no pain. No acute distress is noted. Patient denies any chronic medical problems. Review of history notes hepatitis C infection and cholecystitis. Review of Systems General: Reports: 10 or more systems reviewed and unremarkable except in HPI and below Skin/Breast: Reports: nipple discharge PFSH ED PFSH: Medical History Bipolar disorder History of intravenous drug use in remission Surgical History H/O tubal ligation Family History Father Cancer Testicular cancer Social History (Updated 06/18/20 @ 09:44 by Tripp Frey MD) Smoking and tobacco status: current every day smoker cigarettes Packs smoked per day: 0.25 Years cigarettes smoked: 30 [ Other cigarette details: Smoking since age 11, used to smoke a little bit more] Alcohol intake: never Female Reproductive History: Date of last menstrual period: 11/21/19 Physical Exam Const: COMMON NORMALS: alert HENMT: COMMON NORMALS: normocephalic HEAD & SCALP: normocephalic Neck/C-Spine: COMMON NORMALS: full ROM Resp: COMMON NORMALS: normal respiratory effort and clear to auscultation bilaterally AUSCULTATION: clear to auscultation bilaterally Cardio: COMMON NORMALS: regular rate RATE: regular rate Extremity: COMMON NORMALS: normal to inspection Neuro: SENSORIUM/ORIENTATION: Yes alert Skin: COMMON NORMALS: no rashes or lesions noted GENERAL SKIN EXAM: no rashes or lesions noted Course Vital Signs: Vital signs: Vital Signs Temperature 98.7 F 10/30/21 19:25 Pulse Rate 74 10/30/21 19:25 Respiratory Rate 18 10/30/21 19:25 Blood Pressure 179/101 10/30/21 19:25 Pulse Oximetry 98 10/30/21 19:25 MDM - General Adult Medical Decision Making 41-year-old female comes in today for concerns of drainage from the nipple of the left breast. Patient denies any changes in the breast tissue but some tenderness at the nipple. She also reports no redness or inflammation to the breast. Vital signs are normal except for some elevation in blood pressure at 179. Patient also complained of some blurriness to the left eye. Examination of the eye notes pupils equal and reactive, and no abnormal funduscopy of the eye. Differential diagnosis includes mastitis, breast carcinoma, galactorrhea, malingering. I was unable to complete a full breast exam due to patient being in our vertical flow department. I placed a case management report for patient to follow-up with LAB AIDE for further evaluation of the breast. We will cover with cephalexin for concerns of mastitis due to the patient reported purulent drainage from the nipple and tenderness of the areola. Remainder of the exam was unremarkable. hCG was negative. Patient reported understanding agreed to plan. Lab Data Laboratory Results Urine HCG, Qual Negative (Negative) 10/30/21 19:37 Discharge Plan Discharge Patient Disposition: Home Clinical Impression: Mastitis, Galactorrhea, Post concussive syndrome Condition: Stable Prescriptions: New cephalexin 500 mg capsule 500 mg PO Q8H 7 Days Qty: 21 0RF Discharge Orders: Discharge ED (Routine); Ordered 10/30/21 Ordered By: Hamlet Grissom Discharge Diet: Usual diet Discharge Activity: Increase activity as tolerated Patient Instructions: Mastitis (ED) Activity Restrictions/Additional Instructions: Take antibiotics as directed. Use acetaminophen or ibuprofen for pain. Follow- up with LAB AIDE for further evaluation of breast abnormalities. Follow-up with primary care for other concerns. Return to ER for new problems. Coding Level of Care Code ED Sugar Refinery Supervisor for Judith Red
[2021-10-30 21:52] LABS: Add Urine Microscopic? YES; Bilirubin Urine Neg (Negative); Blood Urine 3+ (Negative); Glucose Urine UA Norm (Normal); Ketones Urine Negative (Negative); Leukocyte Esterase Urine Negative (Negative); Nitrate Urine Negative (Negative); Protein Urine Neg (Negative); Urine Appearance Clear (CLEAR); Urine Color Colorless (Yellow); Urobilinogen Urine Norm (Negative); pH Urine 6 (5-7)
[2021-10-30 21:53] LABS: Add Urine Culture? No; Bacteria Urine 3+ /hpf; RBC Urine 0-4 /hpf (0-2)
[2021-10-30] MEDS: cephALEXin 500 mg Capsule PO (22:18)
[2021-10-30 22:34] VITALS: BP 167/92; PULSE 71; RESP 18; TEMP 37.1; O2SAT 98
--- NOTE | 2021-10-31 10:47 | DCPLANNER ---
Addendum entered by Opal Lynn 12/08/21 10:54: Patient had a follow up appointment scheduled for 12.07.21 at [facility] - patient did attend appointment. Addendum entered by Opal Lynn 11/08/21 12:24: Patient has a follow up appointment scheduled for November at 2:30 with Bettie Arguelles at [facility]. Clinic will call patient with appointment information. Original Note: assistant general manager had message to schedule a follow up appointment for patient with [facility]. assistant general manager sent patients information to the front office staff at [facility]. Patients information will be printed and reviewed. Clinic will call patient with appointment information.
== END 2021-10-30 22:35 | disposition home or self-care (01) ==
PROVIDERS: Emergency Provider Nurse Practitioner Family
DX: N61.0 Mastitis without abscess (principal); N64.3 Galactorrhea not associated with childbirth; F07.81 Postconcussional syndrome; F17.210 Nicotine dependence, cigarettes, uncomplicated
CPT/HCPCS: 81001; 81025; 99283

== ENCOUNTER 2021-11-15 10:16 | Emergency (ER) | payer MEDICAID, SELFPAY ==
[2021-11-15 10:26] VITALS: BP 164/93; PULSE 83; RESP 16; TEMP 36.6; O2SAT 97; BMI 20.5
--- NOTE | 2021-11-15 10:35 | W.ED.SKABFB ---
HPI - Skin/Abscess/Foreign Bdy General: Chief complaint: Skin/Abscess/Foreign Body Stated complaint: L BREAST PAIN Time Seen by Provider: 11/15/21 10:26 Source: patient Mode of arrival: ambulatory (in police custody) Limitations: no limitations History of Present Illness: Patient is a 41-year-old female who presents to ED today in police custody for concerns of left breast pain/tenderness. Patient states she has had this discomfort for approximately 3 weeks now. She was seen at our facility on 10/30 and diagnosed with mastitis and galactorrhea. Diagnoses at that time were apparently based on history alone as no physical exam of the breast was actually completed. She was placed on antibiotics for mastitis and referred to women's health (visit scheduled for 12/07). She has finished with these. Patient states she has not noted any improvement. She was subsequently seen a few days ago at urgent care for same issue as well. Patient states at one point she was having some bloody discharge from the nipple however states she is no longer having this. She has not noticed any skin changes to the breast. She has not noticed any redness or swelling. She states she does have several aunts on her father's side that have been diagnosed with breast cancer. She states she has several family members on her mother's side that have been diagnosed with testicular and ovarian cancers. Onset (ago): day(s) Tetanus up to date: yes Location: chest (L breast) Severity: severe Pain Consistency: constant Relieving factors: none Exacerbating factors: palpation Context: none Associated symptoms: Deny chills or fever(s) Treatments prior to arrival: antibiotic Review of Systems Const: Denies: fever(s), chills, body aches, fatigue or malaise Card: Denies: chest pain Resp: Denies: dyspnea GI: Denies: abdominal pain Musc: Denies: neck pain, back pain, extremity pain, extremity swelling, joint pain or joint swelling Skin/Breast: Reports: breast tenderness and breast pain; Denies: rash, erythema, breast swelling, breast skin changes or change in breast shape Neuro: Denies: headache(s) [facility] ED PFSH: Medical History Bipolar disorder History of intravenous drug use in remission Psychiatric care Surgical History H/O tubal ligation Family History Father Cancer Testicular cancer Social History Smoking and tobacco status: current every day smoker cigarettes Packs smoked per day: 0.25 Years cigarettes smoked: 30 [ Other cigarette details: Smoking since age 11, used to smoke a little bit more] Alcohol intake: never Female Reproductive History: Date of last menstrual period: 11/21/19 Physical Exam Const: COMMON NORMALS: no acute distress, average body habitus, patient oriented x3, no limitations and alert GENERAL APPEARANCE: cooperative ORIENTATION/CONSCIOUSNESS: Yes awake, Yes oriented to person, Yes oriented to place and Yes oriented to time Chest: COMMONS NORMALS: normal inspection of the chest NIPPLE/AREOLA: Yes nipples/areola normal OTHER: gross inspection of the breast does not reveal any redness or overlying skin changes; there is no nipple discharge or irregularity of the nipple; patient has significant tenderness with palpation to the inferiolateral aspect of her L breast; there is no obvious mass palpated however exam felt to be limited to due to patient intolerance Resp: COMMON NORMALS: normal respiratory effort and clear to auscultation bilaterally AUSCULTATION: clear to auscultation bilaterally Cardio: COMMON NORMALS: regular rate and regular rhythm RATE: regular rate RHYTHM: regular rhythm Neuro: SUSAN COMA SCALE: document GCS findings Susan coma scale eye opening: Spontaneous Susan coma scale verbal response: Orientated Susan coma scale motor response: Obey commands [place] coma scale total score: 15 COMMON NORMALS: patient oriented x3 SENSORIUM/ORIENTATION: Yes alert, Yes oriented to person, Yes oriented to place and Yes oriented to time Course Vital Signs: Vital signs: Vital Signs Temperature 97.9 F 11/15/21 10:26 Pulse Rate 83 11/15/21 10:26 Respiratory Rate 16 11/15/21 10:26 Blood Pressure 164/93 11/15/21 10:26 Pulse Oximetry 97 11/15/21 10:26 Oxygen Delivery Me thod 11/15/21 10:26 MDM - Skin/Abscess/Foreign Bdy Medicial Decision Making Given patient's pain and family history of breast cancer-she will need up mammogram for further evaluation. I have no concerns for breast abscess at this time. I have written patient for an outpatient mammogram order placed this with case management. She has an appointment to see women's health on 12/07. Return to ED precautions given. Discharge Plan Discharge Patient Disposition: Home Clinical Impression: Pain of left breast Condition: Stable Discharge Orders: Discharge ED (Routine); Ordered 11/15/21 Ordered By: Екатерина Bianchi Patient Instructions: Breast Pain Activity Restrictions/Additional Instructions: I have written patient for an outpatient order for a mammogram for further evaluation of her left breast pain. Case management should contact the custodial to get patient scheduled for this exam. She has an appointment scheduled on 12/[address] [facility] for further evaluation. As we discussed patient may take 800 mg of ibuprofen every 6-8 hours along with 1000 mg of Tylenol every 4-6 hours as needed for breast discomfort. Coding Level of Care Code ED Summer Internship for Judith Red
--- NOTE | 2021-11-17 14:22 | DCPLANNER ---
Addendum entered by Opal Lynn 11/23/21 13:35: Patient had a follow up appointment scheduled for 11.22.21 - patient did attend appointment. Original Note: manager qa had message to schedule an outpatient mammogram for patient. manager qa faxed signed order to centralized scheduling, who will call patient with appointment information.
== END 2021-11-15 11:22 | disposition home or self-care (01) ==
PROVIDERS: Emergency Provider Physician Assistant
DX: N64.4 Mastodynia (principal); F17.210 Nicotine dependence, cigarettes, uncomplicated
CPT/HCPCS: 99281

== ENCOUNTER 2021-11-22 11:45 | Outpatient (CLI) | payer MEDICAID, SELFPAY ==
--- NOTE | 2021-11-22 11:48 | MM_ITS ---
WS: [id number] DIAGNOSTIC BILATERAL DIGITAL BREAST TOMOSYNTHESIS MAMMOGRAPHY WITH CAD LEFT breast ultrasound, limited. HISTORY: Bloody discharge LEFT nipple. COMPARISON: None available. TECHNIQUE: Bilateral craniocaudad, mediolateral oblique, and mediolateral views are submitted with to mosdorian and SM. Spot compression LEFT CC. Computer aided detection utilized. Breast composition: The breasts are heterogeneously dense, which may obscure small masses. Dense fibr oglandular tissue in the anterior breast. No mass or distortion. No nipple retraction. There are a fe w benign scattered calcifications within each breast. LEFT breast ultrasound, limited. Ultrasound directed around the LEFT areolar. There are are some very mildly prominent ducts. There is a small cyst at 9:00 measuring 4 x 3.8 mm. No solid mass. Benign lymph nodes in the LEFT axilla. MM/[place] [id number] IMPRESSION: BI-RADS: 2-Benign FOLLOW UP: See Report No mammographic or ultrasound abnormality is identified. If patient continues w ith bloody LEFT nipple discharge surgical evaluation may be necessary. No imagi ng abnormality identified.
--- NOTE | 2021-11-22 13:27 | US_ITS ---
WS: [id number] DIAGNOSTIC BILATERAL DIGITAL BREAST TOMOSYNTHESIS MAMMOGRAPHY WITH CAD LEFT breast ultrasound, limited. HISTORY: Bloody discharge LEFT nipple. COMPARISON: None available. TECHNIQUE: Bilateral craniocaudad, mediolateral oblique, and mediolateral views are submitted with to mosdorian and SM. Spot compression LEFT CC. Computer aided detection utilized. Breast composition: The breasts are heterogeneously dense, which may obscure small masses. Dense fibr oglandular tissue in the anterior breast. No mass or distortion. No nipple retraction. There are a fe w benign scattered calcifications within each breast. LEFT breast ultrasound, limited. Ultrasound directed around the LEFT areolar. There are are some very mildly prominent ducts. There is a small cyst at 9:00 measuring 4 x 3.8 mm. No solid mass. Benign lymph nodes in the LEFT axilla. US/US breast LT limited* [id number] IMPRESSION: BI-RADS: 2-Benign FOLLOW UP: See Report No mammographic or ultrasound abnormality is identified. If patient continues w ith bloody LEFT nipple discharge surgical evaluation may be necessary. No imagi ng abnormality identified.
== END 2021-11-22 11:46 | disposition home or self-care (01) ==
PROVIDERS: Visit Provider Nurse Practitioner Family
DX: N64.4 Mastodynia (principal); N64.52 Nipple discharge
CPT/HCPCS: 76642; 77062; 77063; 77067

== ENCOUNTER → 2021-12-07 15:28 | Outpatient (BNVA) | payer MEDICAID, SELFPAY | PROVIDERS: Visit Provider Nurse Practitioner Women's Health | DX: Z12.4 Encounter for screening for malignant neoplasm of cervix (principal); Z11.3 Encounter for screening for infections with a predominantly sexual mode of transmission | CPT/HCPCS: 87491; 87591; 87624; 87661 ==

== ENCOUNTER 2022-05-02 15:36 | Emergency (ER) | payer MEDICAID, SELFPAY ==
[2022-05-02 16:06] VITALS: BMI 26.5
[2022-05-02 16:11] VITALS: BP 117/78; PULSE 100; RESP 19; TEMP 36.8; O2SAT 100
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
[2022-05-02] MEDS: sulfamethoxazole-trimeth DS 160-800 mg Tablet 1 TAB PO (17:41)
[2022-05-02] MEDS: HYDROcodone-acetaminophen 5-325 mg Tablet 1 TAB PO (17:41)
[2022-05-02] MEDS: cefTRIAXone 1,000 MG in water for injection-sterile 2.1 ML 2.1 MG IM (17:41)
== END 2022-05-02 17:44 | disposition home or self-care (01) ==
PROVIDERS: Emergency Provider Nurse Practitioner Family
DX: L03.012 Cellulitis of left finger (principal); F17.210 Nicotine dependence, cigarettes, uncomplicated; Z86.19 Personal history of other infectious and parasitic diseases; I10 Essential (primary) hypertension
CPT/HCPCS: 73130; 96365; 96372; 99284; J0696

== ENCOUNTER → 2022-08-23 09:39 | Outpatient (BNVA) | payer MEDICAID, SELFPAY | PROVIDERS: PCP Family Medicine; Visit Provider Family Medicine | DX: R30.0 Dysuria (principal) | CPT/HCPCS: 81000; 87086 ==

== ENCOUNTER → 2023-01-24 18:08 | Outpatient (BNVA) | payer MEDICAID, SELFPAY | PROVIDERS: PCP Family Medicine; Visit Provider Family Medicine | DX: M54.50 Low back pain, unspecified | CPT/HCPCS: 81000 ==

== ENCOUNTER → 2023-03-05 14:48 | Outpatient (BNVA) | payer MEDICAID, SELFPAY | PROVIDERS: PCP Family Medicine; Visit Provider Nurse Practitioner Family | DX: R05.9 Cough, unspecified (principal) | CPT/HCPCS: 87426 ==

== ENCOUNTER 2023-03-19 03:14 | Emergency (ER) | payer MEDICAID, SELFPAY ==
[2023-03-19 03:17] VITALS: BP 137/94; PULSE 115; RESP 18; TEMP 36.7; O2SAT 97; BMI 29.7
[2023-03-19 03:59] LABS: Urine Color Yellow (Yellow)
[2023-03-19 04:00] LABS: Add Urine Culture? No; Bacteria Urine 1+ /hpf; Bilirubin Urine Neg (Negative); Blood Urine 2+ (Negative); Glucose Urine UA Norm (Normal); Ketones Urine 1+ (Negative); Leukocyte Esterase Urine Negative (Negative); Mucus Urine 2+ /hpf; Nitrate Urine Negative (Negative); Protein Urine Trace (Negative); RBC Urine 0-4 /hpf (0-2); Specific Gravity, Urine 1.025 (1.005-1.030); Urine Appearance SL Hazy (CLEAR); Urobilinogen Urine Neg (Negative); pH Urine 5 (5-7)
--- NOTE | 2023-03-19 04:59 | ED_ITS ---
HPI - Back Pain/Injury General: Chief Complaint: Back Pain/Injury Stated Complaint: back pain Time Seen by Provider: 03/19/23 03:19 History of Present Illness: 43-year-old female presents emerged part via EMS personnel with complaints of low back pain. She states that she was sitting at the local [employer] when to police officers started questioning her about why she was outside with no shoes on at this time in the morning and this low temperature and states that she was acting strange. The patient states that she is felt like she was having low back pain and needed to come to the emergency department. EMS personnel were called and transported her here to the emergency department she did ambulate from the ambulance into the emergency department without difficulty. Patient does demonstrate strange and odd behavior but is cognizant and able to follow commands appropriately. She does demonstrate a behavior that is consistent with stimulant use/abuse. She states that her back pain was only there because the police officers were talking to her. Review of Systems General: Reports: 10 or more systems reviewed and unremarkable except in HPI and below Musc: Reports: back pain [facility] PFSH: Medical History Acute acalculous cholecystitis Bipolar disorder Endometriosis determined by laparoscopy (~1999) Hepatitis C infection History of intravenous drug use in remission Hypertension Does not believe she has this; more white coat or just due to not liking the doctor. Reports not being on any medication in the a long time. No pertinent past medical history neghx: dm,thyroid,dvt/pe PCP: None Surgical History H/O tubal ligation History of back surgery (~2011) disc surgery History of laparoscopy (~1999) reports diagnosis of endometriosis--performed in [place]. Hx of dilation and curettage (~2000) SAB treatment Family History Father Cancer Testicular cancer Family/Other Breast cancer 4 paternal aunts--dx age's unknown possibly around 35-45 Ovarian cancer Paternal aunt--dx age unknown Grandmother Breast cancer Paternal-- dx age unknown Ovarian cancer Paternal--dx age unknown Mother Heart disease Hypertension Grandfather Stroke Paternal Denies family history of Colon cancer Diabetes Hypercholesteremia Uterine cancer Thyroid disease Social History Smoking and tobacco/nicotine status: current every day tobacco/nicotine user (0.5 ppd) cigarettes Packs smoked per day: 0.25 Years cigarettes smoked: 30 [ Other cigarette details: Smoking since age 11, used to smoke a little bit more] Alcohol intake: never Substance/Drug Use: former 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, 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 Vital signs reviewed as documented. HENMT: Normocephalic, atraumatic. Extermal ears with normal appearance without drainage. Nose without drainage, normal appearance. Mucus membranes moist. Neck is supple, No jugular venous distension, trachea is midline, no appreciable carotid bruits. No lymphadenopathy. No meningeal signs. Flexion, extension and lateral rotation is without pain. Eyes: Pupils are equal, round, reactive to light and accommodation. No scleral icterus. Extra-ocular movement are intact. Thorax is symmetrical and with equal rise and fall with respirations. Resp: Lungs are clear to auscultation. No wheezes, rales, crackles or ronchi at present. Cardio: Regular rate and rhythm. Positive S1, S2. No appreciable murmurs, rubs or gallops. GI: Abdominal exam reveals normal bowel sounds to all quadrants. No organome sapphire. No obvious palpable masses noted. No hepatomegally appreciated. Soft, nontender to palpation. Extremity: Extremities are non-edematous and both femoral and pedal pulses are 2+ and equal bilaterally. Moves all extremities well, sensation in all extremities. Neuro: Alert and oriented x4, person, place, time and situation. Cranial nerves II through XII are grossly intact, there is no focal neurological deficits that I can appreciate at present. Motor strength in the upper and lower extremities are equal and bilateral 5/5. Psych: Cooperative, calm, Patient appears to be hyper mobile and unable to sit still.normal thought process, appropriate judgment. Skin: No lesions, rashes. No gross abnormalities noted. Back: Symmetrical, no obvious deformity, No CVA tenderness Course Vital Signs: Vital signs: Vital Signs Temperature 98.0 F 03/19/23 03:17 Pulse Rate 115 H 03/19/23 03:17 Respiratory Rate 18 03/19/23 03:17 Blood Pressure 137/94 03/19/23 03:17 Pulse Oximetry 97 03/19/23 03:17 Oxygen Delivery Me thod Room Air 03/19/23 03:17 MDM - Back Pain/Injury Medical Decision Making Physical exam completed and documented I will obtain a urinalysis as the patient does state that she has intermittent burning when she urinates. Medical Records I reviewed the patient's medical records. Labs Laboratory Results Urine Color Yellow (Yellow) 03/19/23 03:40 Urine Appearance Sl hazy (CLEAR) A 03/19/23 03:40 Urine pH 5 (5-7) 03/19/23 03:40 Ur Specific [place] 1.025 (1.005-1.030) 03/19/23 03:40 Urine Protein Trace (Negative) 03/19/23 03:40 Urine Glucose (UA) Norm (Normal) 03/19/23 03:40 Urine Ketones 1+ (Negative) H 03/19/23 03:40 Urine Blood 2+ (Negative) H 03/19/23 03:40 Urine Nitrate Negative (Negative) 03/19/23 03:40 Urine Bilirubin Neg (Negative) 03/19/23 03:40 Urine Urobilinogen Neg mg/dL (Negative) 03/19/23 03:40 Ur Leukocyte Esterase Negative (Negative) 03/19/23 03:40 Urine RBC 0-4 /hpf (0-2) H 03/19/23 03:40 Urine WBC None /hpf (0-5) 03/19/23 03:40 Ur Squamous Epith Cells 10-15 /hpf (0-5) H 03/19/23 03:40 Amorphous Sediment Not Reportable 03/19/23 03:40 Urine Bacteria 1+ /hpf (NONE) H 03/19/23 03:40 Urine Mucus 2+ /hpf 03/19/23 03:40 No radiology studies performed this visit Discharge Plan Discharge Patient Disposition: Home Clinical Impression: Dysuria Low back pain Qualifiers: Chronicity: acute Back pain laterality: right Sciatica presence: without sciatica Qualified Code(s): M54.50 - Low back pain, unspecified Condition: Stable Prescriptions: No Action bupropion HCl 150 mg tablet extended release 24 hr 150 mg PO QAM Qty: 30 2RF hydroxyzine HCl 50 mg tablet 50 mg PO TID PRN (Reason: anxiety) Qty: 90 2RF trazodone 50 mg tablet 50 mg PO .qhs Qty: 30 0RF diclofenac sodium 75 mg tablet,delayed release (DR/EC) 75 mg PO BID PRN (Reason: pain) Qty: 60 2RF Rx Instructions: no ibuprofen with this amoxicillin-pot clavulanate 875-125 mg tablet 1 tab PO BID 10 Days Qty: 20 0RF Discharge Orders: Discharge ED (Routine); Ordered 03/19/23 Ordered By: Sukh Adams Referrals: Bettie Andrews DO [Primary Care Provider] - Discharge Diet: Advance as tolerated Discharge Activity: Resume usual activity Patient Instructions: Opioid Safety, Pain Management Activity Restrictions/Additional Instructions: Activity Restrictions/Additional Instructions: Thank you for choosing [facility] for your healthcare needs today. Please realize that you were seen in the Emergency Department and that we are providing you with an emergency medical screening exam and this may not be complete and all inclusive of all the testing and or medical work-up that you may need to determine your ailment or severity of your illness. It is very important that you follow-up as instructed with your Primary care provider or Specialist for additional evaluation and to discuss your medical treatment plan. You may return to the Emergency Department should you have concerns or if your condition changes or worsens in any way. Coding Level of Care Code ED Motor Builder Assembler for Judith Red
[2023-03-19 05:14] VITALS: BP 137/94; PULSE 115; RESP 18; TEMP 36.7; O2SAT 97
== END 2023-03-19 05:15 | disposition home or self-care (01) ==
PROVIDERS: Emergency Provider Internal Medicine; PCP Family Medicine
DX: M54.50 Low back pain, unspecified (principal); R30.0 Dysuria; F17.210 Nicotine dependence, cigarettes, uncomplicated; Z86.19 Personal history of other infectious and parasitic diseases; I10 Essential (primary) hypertension
CPT/HCPCS: 81001; 99283

== ENCOUNTER 2023-03-25 15:55 | Emergency (ER) | payer MEDICAID, SELFPAY ==
[2023-03-25 16:12] VITALS: BP 128/81; PULSE 67; RESP 18; TEMP 36.6; O2SAT 100
--- NOTE | 2023-03-25 16:19 | W.ED.EXTPRO ---
HPI - Extremity Problem General: Chief complaint: Extremity Problem,Nontraumatic Stated complaint: sores on throat, reeves bite toes? Time Seen by Provider: 03/25/23 16:17 Source: patient Mode of arrival: ambulatory Limitations: no limitations History of Present Illness: 43-year-old female states that she went outside 2 days ago without shoes on since then she been having some pain in her toes. States mainly her great toes on both sides she concerned she may have had frostbite. Rates the pain as a 4 out of 10 and sharp in nature denies any injuries. Associated symptoms: Deny chest pain, fever(s) or rash Review of Systems Const: Denies: fever(s), chills, body aches or change in appetite ENMT: Denies: throat pain or dental pain Card: Denies: chest pain Resp: Denies: dyspnea GI: Denies: abdominal pain, nausea, vomiting or diarrhea Musc: Reports: extremity pain; Denies: neck pain or back pain Skin/Breast: Denies: rash Neuro: Denies: headache(s) PFSH ED PFSH: Medical History Endometriosis determined by laparoscopy (~1999) No pertinent past medical history neghx: dm,thyroid,dvt/pe PCP: None Hypertension Does not believe she has this; more white coat or just due to not liking the doctor. Reports not being on any medication in the a long time. History of intravenous drug use in remission Hepatitis C infection Bipolar disorder Acute acalculous cholecystitis Surgical History History of back surgery (~2011) disc surgery History of laparoscopy (~1999) reports diagnosis of endometriosis--performed in [place]. Hx of dilation and curettage (~2000) SAB treatment H/O tubal ligation Family History Father Cancer Testicular cancer Family/Other Breast cancer 4 paternal aunts--dx age's unknown possibly around 35-45 Ovarian cancer Paternal aunt--dx age unknown Grandmother Breast cancer Paternal-- dx age unknown Ovarian cancer Paternal--dx age unknown Mother Heart disease Hypertension Grandfather Stroke Paternal Denies family history of Colon cancer Diabetes Hypercholesteremia Uterine cancer Thyroid disease Social History Smoking and tobacco/nicotine status: current every day tobacco/nicotine user (0.5 ppd) cigarettes Packs smoked per day: 0.25 Years cigarettes smoked: 30 [ Other cigarette details: Smoking since age 11, used to smoke a little bit more] Alcohol intake: never Substance/Drug Use: former 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, 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 Physical Exam Const: COMMON NORMALS: no acute distress, patient oriented x3 and healthy appearing HENMT: COMMON NORMALS: normocephalic and atraumatic HEAD & SCALP: normocephalic and atraumatic Eye: COMMON NORMALS: conjunctivae normal CONJUNCTIVA: Yes conjunctivae normal Neck/C-Spine: COMMON NORMALS: full ROM and supple Chest: COMMONS NORMALS: normal inspection of the chest Resp: COMMON NORMALS: normal respiratory effort Extremity: COMMON NORMALS: normal to inspection and full ROM NARRATIVE EXTREMITY EXAM: Bilateral feet are normal no signs of frostbite feet and toes are normal color she is got good pulses bilaterally has good cap refill Neuro: COMMON NORMALS: patient oriented x3, moves all extremities and no focal motor deficits Psych: COMMON NORMALS: mental status grossly normal, Normal thought process present and cooperative THOUGHT PROCESS: Normal thought process present Skin: COMMON NORMALS: no rashes or lesions noted and no wounds GENERAL SKIN EXAM: no rashes or lesions noted Course Vital Signs: Vital signs: Vital Signs Temperature 97.8 F 03/25/23 16:12 Pulse Rate 67 03/25/23 16:12 Respiratory Rate 18 03/25/23 16:12 Blood Pressure 128/81 03/25/23 16:12 Pulse Oximetry 100 03/25/23 16:12 Oxygen Delivery Me thod Room Air 03/25/23 16:12 MDM - Extremity (Nontraumatic) Medical Decision Making Patient presents here with some toe pain no signs of any trauma no signs of frostbite or vascular disease patient stable for discharge follow-up PCP return if worsening. Medical Records I reviewed the patient's medical records. No radiology studies performed this visit Discharge Plan Discharge Patient Disposition: Home Clinical Impression: Toe pain Qualifiers: Laterality: bilateral Qualified Code(s): M79.674 - Pain in right toe(s) Condition: Stable Prescriptions: No Action bupropion HCl 150 mg tablet extended release 24 hr 150 mg PO QAM Qty: 30 2RF hydroxyzine HCl 50 mg tablet 50 mg PO TID PRN (Reason: anxiety) Qty: 90 2RF trazodone 50 mg tablet 50 mg PO .qhs Qty: 30 0RF diclofenac sodium 75 mg tablet,delayed release (DR/EC) 75 mg PO BID PRN (Reason: pain) Qty: 60 2RF Rx Instructions: no ibuprofen with this amoxicillin-pot clavulanate 875-125 mg tablet 1 tab PO BID 10 Days Qty: 20 0RF Discharge Orders: Discharge ED (Routine); Ordered 03/25/23 Ordered By: Shahida Malagon Referrals: Bettie Andrews DO [Primary Care Provider] - 1-3 days Discharge Diet: Advance as tolerated Discharge Activity: Resume usual activity Patient Instructions: Arthralgia (ED) Coding Level of Care Code ED Candy Polisher for Judith Red
== END 2023-03-25 16:25 | disposition home or self-care (01) ==
PROVIDERS: Emergency Provider Emergency Medicine; PCP Family Medicine
DX: M79.674 Pain in right toe(s) (principal); F17.210 Nicotine dependence, cigarettes, uncomplicated; I10 Essential (primary) hypertension; Z86.19 Personal history of other infectious and parasitic diseases
CPT/HCPCS: 99281